=== PATIENT | female | born 1945 | race Caucasian/White ===

== ENCOUNTER 2019-02-13 21:48 | Inpatient (IN) | payer MEDICARE ==
[~2019-02-13] VITALS: Ht 167.6 cm; Wt 170.1 kg
[~2019-02-13 21:48] MED LIST: AMIODARONE HCL 50 MG/ML 3 ML VIAL IV ONE; EPINEPHRINE 0.1 MG/ML 10 ML SYG IVP ONE; ETOMIDATE 2 MG/ML 10 ML VIAL IVP ONE; ROCURONIUM BROMIDE 10MG/1ML 5ML VL IV ONE; SODIUM BICARB 8.4% 50ML SYRINGE IVP ONE; SUCCINYLCHOLINE CHLORIDE 20 MG/ML 10 ML VIAL IVP ONE
[2019-02-13] MEDS ORDERED: LORAZEPAM 2 MG/ML 1 ML VIAL ONE (21:58)
[2019-02-13] MEDS ORDERED: KETAMINE HCL 100 MG/ML 5ML VIAL IJ ONE (22:03)
[2019-02-13 22:29] LABS: BASOPHILS % (AUTO) 0.9 % (0.0-5.0); EOSINOPHILS % (AUTO) 2.5 % (0.0-8.0); HEMATOCRIT 42.1 % (36-48); LYMPHOCYTES % (AUTO) 42.1 % (21.0-51.0); MEAN CORPUSCULAR HEMOGLOBIN 30.1 pg (27.0-33.0); MEAN CORPUSCULAR HGB CONC 32.9 g/dL (32.0-36.0); MEAN CORPUSCULAR VOLUME 91.5 fL (79-99); MONOCYTES % (AUTO) 6.2 % (3.0-13.0); NEUTROPHILS % (AUTO) 48.3 % (40.0-77.0); PLATELET COUNT (AUTO) 259 K/uL (130-400); RED CELL DISTRIBUTION WIDTH 14.5 % (11.0-15.5); WHITE BLOOD COUNT (AUTO) 10.7 K/uL (4.8-10.8)
[2019-02-13] MEDS ORDERED: MIDAZOLAM HCL 5 MG/ML 2ML VIAL IV ONE (22:29)
[2019-02-13] MEDS ORDERED: SODIUM CHLORIDE 0.9% 50 ML IV ONE (22:30)
[2019-02-13] MEDS ORDERED: SODIUM CHLORIDE 0.9% 100 ML IV ONE (22:31)
[2019-02-13 22:39] LABS: CREATININE 1.4 mg/dL (0.5-1.5)
[2019-02-13 22:41] LABS: INR 0.95 (0.85-1.15); PARTIAL THROMBOPLASTIN TIME 24.7 SEC (26.3-35.5)
[2019-02-13 22:50] LABS: ALBUMIN 3.5 g/dL (3.5-5.0); BILIRUBIN,TOTAL 0.5 mg/dL (0.2-1.0); TOTAL PROTEIN, SERUM 7.4 g/dL (6.0-8.3)
[2019-02-13] MEDS ORDERED: IOHEXOL 350 MG/ML 100ML INFUS..BTL IV ONE (23:05)
[2019-02-13] MEDS ORDERED: NITROGLYCERIN 5 MG/ML 10 ML VIAL IV ONE (23:05)
[2019-02-13] MEDS ORDERED: HEPARIN SODIUM 1000UNIT/ML 10ML VIAL ONE (23:05)
[2019-02-13] MEDS ORDERED: BIVALIRUDIN 250 MG/VIAL IV ONE ×2 (23:05→23:30)
[2019-02-13] MEDS ORDERED: IOHEXOL-350 50ML VIAL IV ONE (23:05)
[2019-02-13 23:06] LABS: ABG BASE EXCESS -6.4 mmol/L (-2.0-3.0); ABG HCO3 19.9 mmol/L (21.0-28.0); ABG OXYGEN SATURATION 98.9 % (95.0-99.0); ABG PCO2 42 mmHg (32-45)
[2019-02-13] MEDS ORDERED: LIDOCAINE HCL 2% 20ML ONE (23:06)
[2019-02-13] MEDS ORDERED: DOPAMINE HCL 400 MG/D5%-WATER 250 ML IV ONE (23:35)
[2019-02-13] MEDS ORDERED: EPTIFIBATIDE 2 MG/ML 10 ML VIAL IVP ONE ×2 (23:44→23:45)
[2019-02-13] MEDS ORDERED: EPTIFIBATIDE 75MG/100ML BOTTLE 100 ML IV ONE (23:50)
[2019-02-14] VITALS (62 sets, daily range): BP systolic 69–147; BP diastolic 37–85
[2019-02-14] MEDS ORDERED: EPTIFIBATIDE 2 MG/ML 10 ML VIAL IVP ONE
[2019-02-14] MEDS ORDERED: FENTANYL 2500MCG+NS 250ML 0 ML IV ONE (00:08)
[2019-02-14] MEDS ORDERED: HEPARIN 25000 UNITS/250 ML D5W 250 ML IV ONE (00:50)
[2019-02-14] MEDS ORDERED: HEPARIN SODIUM 1000UNIT/ML 10ML VIAL ONE (00:50)
[2019-02-14] MEDS ORDERED: PHARMACY COMMUNICATION MISC SCH ×2 (01:15→01:30)
[2019-02-14] MEDS ORDERED: PROPOFOL 1000 MG/100 ML IV PRN (01:30)
[2019-02-14] MEDS ORDERED: PRASUGREL HCL 10 MG TABLET ONE (01:54)
[2019-02-14] MEDS ORDERED: PRASUGREL HCL 10 MG TABLET PO ONE (02:00)
[2019-02-14] MEDS ORDERED: PROPOFOL 1000 MG/100 ML 100 ML IV ONE (02:15)
[2019-02-14] MEDS ORDERED: DOPAMINE 800MG/D5 250ML 250 ML IV ONE (04:18)
[2019-02-14 04:37] LABS: MEAN CORPUSCULAR HEMOGLOBIN 29.5 pg (27.0-33.0); MEAN CORPUSCULAR HGB CONC 33.4 g/dL (32.0-36.0); MEAN CORPUSCULAR VOLUME 88.5 fL (79-99); PLATELET COUNT (AUTO) 314 K/uL (130-400); RED BLOOD CELL COUNT(AUTO) 4.63 MIL/uL (4.00-5.50); RED CELL DISTRIBUTION WIDTH 13.9 % (11.0-15.5)
[2019-02-14 04:40] LABS: INR 1.21 (0.85-1.15); PARTIAL THROMBOPLASTIN TIME 59.5 SEC (26.3-35.5); PROTHROMBIN TIME 12.7 SEC (9.6-11.6)
[2019-02-14] MEDS: EPTIFIBATIDE 75MG/100ML BOTTLE 100 ML IV SCH ×5 (05:15→21:25)
[2019-02-14 05:40] LABS: CREATININE 1.7 mg/dL (0.5-1.5); POTASSIUM 3.4 mmol/L (3.5-5.1)
[2019-02-14] MEDS ORDERED: HEPARIN SODIUM 5000UNIT/ML 1ML VIAL SQ PRN (06:00)
[2019-02-14] MEDS ORDERED: DEXTROSE 50%-WATER 50 ML DISP.SYRIN IV PRN (06:00)
[2019-02-14] MEDS: INSULIN HUMULIN R 100 UNIT/ML 3ML SQ SCH ×3 (06:00→18:00)
[2019-02-14] MEDS ORDERED: GLUCAGON 1MG KIT 1 MG ML IM PRN (06:00)
[2019-02-14] MEDS ORDERED: LIDOCAINE HCL-MPF 1% 2ML VIAL IV PRN (06:00)
[2019-02-14] MEDS ORDERED: SODIUM CHLORIDE 0.9% 1000ML 1,000 ML IV SCH (06:00)
[2019-02-14 07:38] LABS: ABG BASE EXCESS -4.2 mmol/L (-2.0-3.0); ABG HCO3 22.2 mmol/L (21.0-28.0); ABG OXYGEN SATURATION 98.8 % (95.0-99.0); ABG PCO2 46 mmHg (32-45)
[2019-02-14] MEDS: SODIUM CHLORIDE 0.9% 1000ML 1,000 ML IV SCH ×2 (08:45→11:53)
[2019-02-14] MEDS: ASPIRIN 81MG TAB.CHEW PO SCH (08:50)
[2019-02-14] MEDS ORDERED: ASPIRIN 81 MG EC TAB PO SCH (09:00)
[2019-02-14 10:35] LABS: INR 1.07 (0.85-1.15); PARTIAL THROMBOPLASTIN TIME 57.3 SEC (26.3-35.5); PROTHROMBIN TIME 11.2 SEC (9.6-11.6)
[2019-02-14 11:30] LABS: TROPONIN I 67.5 ng/mL (0.00-0.06)
[2019-02-14] MEDS ORDERED: FENTANYL 2500MCG+NS 250ML 250 ML IV PRN (11:45)
[2019-02-14] MEDS: NOREPINEPHRINE 4MG/NS 250ML 250 ML IV SCH ×2 (12:27→18:37)
[2019-02-14] MEDS ORDERED: FLUO-126 PO (12:51)
[2019-02-14] MEDS ORDERED: VALS1TAB73 PO (12:51)
[2019-02-14] MEDS ORDERED: LEVO137T2 PO (12:51)
--- NOTE | 2019-02-14 13:12 | NUR ---
DC PLAN VISITED WITH PATIENT. PATIENT S/P CARDIAC ARREST. INTUBATED NO FAMILY AT BEDSIDE. CM WILL CONTINUE TO FOLLOW. ONCE PATIENT IS STABLE WILL DISCUSS DC PLAN. Addendum: 02/14/19 at 1313 by SPRING YANCEY RN CM Amended: Links added.
[2019-02-14] MEDS: MIDAZOLAM 100MG-0.9% NS 100ML 100 ML IV PRN (13:50)
[2019-02-14] MEDS: DOPAMINE 800MG/D5 250ML 250 ML IV PRN (13:52)
--- NOTE | 2019-02-14 13:55 | NUR ---
RD NOTIFICATION Primary Diagnosis: Acute Cardiac Arrest. Hx: HTN, Morbid obese, Elevated Acute NE. BMI is 59.9; classified as Class III morbid obese. Pt is currently NPO. LMB: unknown as per nurse. Skin: edema present. Meds: Diprivan, Humulin R, Effient, Asprin, Lipitor, Heparin, Midazolam, Eptifibatide. Labs: WBC 21, BUN 20, CRE 1.7, GFR 31, BG 172, K 3.4, Cre Kinase 1815, Troponin .30, PH 7.3, PCO2 46, Cl 100. Pt is currently intubated. RD recommends to provide Vital AF 1.2 via NG tube. Start rate at 20mLs for first 5 hrs. Increase rate as tolerated by 5mLs every 5 hours. Goal rate is 65mLs/hr. Propofol 1.1 at 10mLs/hr. Formula Provides: 1872kcal/d, 117grams protein/d, 1265 free water. Flush with 185mLs every 4 hours + 200mLs with meds. Providing 2200mLs total H2O/d. RD left TF order in pts binder and notified RN. RD will continue to monitor and follow up as needed. Please notify RD if any other nutritional concerns arise. Thank you. Addendum: 02/14/19 at [address] Amended: Links added.
--- NOTE | 2019-02-14 14:20 | NUR ---
DR Molina ADLER PAGED TO CLARIFY INTEGRILLIN ORDER, STATES TO INFUSE FOR 24HRS. DISCUSSED PATIENT'S VS, NO URINE OUTPUT, AND DRIPS. NEW ORDERS FOR LASIX AND TO WEAN 1 VASOPRESSOR. WILL CONTINUE TO MONITOR.
--- NOTE | 2019-02-14 16:30 | NUR ---
UPDATED DR Molina ADLER THAT PATIENT DROPPED HR AND BP WHEN DECREASING DOPAMINE. ORDERED TO STOP HEPARIN NOW, IABP 1:3 AND PLAN IABP DC AT 1830. FAMILY UPDATED.
[2019-02-14] MEDS ORDERED: POTASSIUM CHLORIDE 20 MEQ ERTAB PO PRN (16:45)
[2019-02-14] MEDS ORDERED: FUROSEMIDE 10 MG/ML 2ML VIAL ONE (17:10)
[2019-02-14 18:24] LABS: APPEARANCE,URINE Cloudy (CLEAR); BILIRUBIN,URINE Negative (NEGATIVE); COLOR,URINE Yellow (YELLOW); GLUCOSE, URINE (UA) Negative (NEGATIVE); KETONES,URINE Negative (NEGATIVE); LEUKOCYTE ESTERASE ,URINE Moderate (NEGATIVE); NITRATE,URINE Negative (NEGATIVE); OCCULT BLOOD,URINE Large (NEGATIVE); PROTEIN,URINE Trace mg/dL (NEGATIVE); UROBILINOGEN,URINE 0.2 mg/dL (0.2-1.0)
[2019-02-14 18:31] LABS: AMPHET/METH SCREEN,URINE NEGATIVE (NEGATIVE); BARBITURATE SCREEN, URINE NEGATIVE (NEGATIVE); BENZODIAZEPINES SCREEN,URINE POSITIVE (NEGATIVE); CANNABINOID SCREEN,URINE NEGATIVE (NEGATIVE); COCAINE SCREEN,URINE NEGATIVE (NEGATIVE); OPIATE SCREEN,URINE NEGATIVE (NEGATIVE); PHENCYCLIDINE SCREEN,URINE NEGATIVE (NEGATIVE); RBC,URINE 26-50 /HPF (0-1)
[2019-02-14 18:32] LABS: BACTERIA,URINE Few /HPF (None Seen); SQUAMOUS EPITHELIAL CELL,UR Rare /HPF (0-2); TRANSITIONAL EPI CELLS,URINE Few /HPF (None Seen)
[2019-02-14 18:34] LABS: OTHER CASTS, URINE MIXED CELL CASTS 1+ /LPF (None Seen)
[2019-02-14] MEDS ORDERED: FUROSEMIDE 10 MG/ML 2ML VIAL IV ONE (18:56)
--- NOTE | 2019-02-14 20:00 | NUR ---
ASSESSMENT PT RESTING QUIETLY IN BED, INTUBATED AND SEDATED. ETT 7.5, 23 AT THE LIP, AC-14-40%-550+5. IVF FLUIDS INFUSING WITHOUT DIFFICULTY. IABP REMOVES WITH AND PREVIOUS SHIFT. 18FR GÓMEZ CATH TO BEDSIDE DRAINAGE. CALLBELL REVIEWED AND WITHIN REACH. BEDSIDE MONITOR REVIEWED AND PARAMETERS ESTABLISHED. WHITE BOARD UP-DATED. ASSESSMENT COMPLETED, SEE FLOW SHEETS.
[2019-02-14] MEDS: FAMOTIDINE/PF 20 MG/2 ML VIAL IV SCH (21:26)
[2019-02-14] MEDS: PRASUGREL HCL 10 MG TABLET PO SCH (21:26)
[2019-02-14] MEDS: ATORVASTATIN CALCIUM 40 MG TABLET PO SCH (21:26)
[2019-02-15] VITALS (35 sets, daily range): BP systolic 79–133; BP diastolic 35–90
[2019-02-15] MEDS ORDERED: MIDAZOLAM HCL 5 MG/ML 2ML VIAL IV ONE (00:49)
[2019-02-15] MEDS: NOREPINEPHRINE 4MG/NS 250ML 250 ML IV SCH ×2 (01:27→17:09)
--- NOTE | 2019-02-15 03:00 | NUR ---
ASSESSMENT PT RESTING QUIETLY IN BED, INTUBATED AND SEDATED. ETT 7.5, 23 AT THE LIP, AC-14-40%-550+5. IVF FLUIDS INFUSING WITHOUT DIFFICULTY. 18FR GÓMEZ CATH TO BEDSIDE DRAINAGE. CALLBELL WITHIN REACH. ASSESSMENT COMPLETED, SEE FLOW SHEETS.
[2019-02-15 04:14] LABS: ABG BASE EXCESS -5.4 mmol/L (-2.0-3.0); ABG HCO3 19.9 mmol/L (21.0-28.0); ABG PCO2 38 mmHg (32-45)
[2019-02-15 05:32] LABS: CREATININE 1.7 mg/dL (0.5-1.5); MAGNESIUM 1.6 mg/dL (1.80-2.40); POTASSIUM 3.8 mmol/L (3.5-5.1)
[2019-02-15 05:54] LABS: BASOPHILS % (AUTO) 0.2 % (0.0-5.0); HEMATOCRIT 35.9 % (36-48); LYMPHOCYTES % (AUTO) 5.2 % (21.0-51.0); MEAN CORPUSCULAR HEMOGLOBIN 29.5 pg (27.0-33.0); MEAN CORPUSCULAR HGB CONC 33.1 g/dL (32.0-36.0); MEAN CORPUSCULAR VOLUME 89.1 fL (79-99); MONOCYTES % (AUTO) 8.3 % (3.0-13.0); NEUTROPHILS % (AUTO) 86.3 % (40.0-77.0); PLATELET COUNT (AUTO) 254 K/uL (130-400); RED BLOOD CELL COUNT(AUTO) 4.03 MIL/uL (4.00-5.50); WHITE BLOOD COUNT (AUTO) 14.8 K/uL (4.8-10.8)
[2019-02-15] MEDS: INSULIN HUMULIN R 100 UNIT/ML 3ML SQ SCH ×4 (06:00→18:00)
[2019-02-15] MEDS: POTASSIUM CHLORIDE 20MEQ/100ML 100 ML IV PRN (08:31)
[2019-02-15] MEDS: MAGNESIUM 2GM PREMIX 50ML 50 ML IV PRN (08:31)
[2019-02-15] MEDS: ASPIRIN 81MG TAB.CHEW PO SCH (08:31)
[2019-02-15 09:12] LABS: TROPONIN I 41.46 ng/mL (0.00-0.06)
[2019-02-15] MEDS: SODIUM CHLORIDE 0.9% 1000ML 1,000 ML IV SCH (11:52)
[2019-02-15] MEDS: DOPAMINE 800MG/D5 250ML 250 ML IV PRN (17:12)
--- NOTE | 2019-02-15 17:18 | NUR ---
cm note met with patients 3 adult children (Lien), they state that pt is normally independent and active at home. she lives alone, uses a walker or cane at times. had a cpap in the past, but no longer has it, didnt qualify anymore. pt drives self, and does own personal care and adls. pt has a sister in law osmin zavala that lives here in the area. pt currently intubated, discussed with family the possiblity of need for rehab or ltach when pt more stable and closer to dc. family open to any md recommendations.
[2019-02-15] MEDS: FAMOTIDINE/PF 20 MG/2 ML VIAL IV SCH (21:15)
[2019-02-15] MEDS: PRASUGREL HCL 10 MG TABLET PO SCH (21:15)
[2019-02-15] MEDS: ATORVASTATIN CALCIUM 40 MG TABLET PO SCH (21:15)
[2019-02-15] MEDS: ENOXAPARIN SODIUM 30 MG/0.3 ML SQ SCH (21:18)
[2019-02-16] VITALS (41 sets, daily range): BP systolic 80–133; BP diastolic 39–81
[2019-02-16] MEDS: SODIUM CHLORIDE 0.9% 1000ML 1,000 ML IV SCH ×2 (00:45→08:04)
[2019-02-16 04:11] LABS: ABG BASE EXCESS -3.3 mmol/L (-2.0-3.0); ABG HCO3 21.3 mmol/L (21.0-28.0); ABG OXYGEN SATURATION 96.3 % (95.0-99.0); ABG PCO2 37 mmHg (32-45)
[2019-02-16] MEDS: NOREPINEPHRINE 4MG/NS 250ML 250 ML IV SCH (04:46)
[2019-02-16] MEDS: INSULIN HUMULIN R 100 UNIT/ML 3ML SQ SCH ×5 (05:31→23:42)
[2019-02-16 05:46] LABS: MEAN CORPUSCULAR HEMOGLOBIN 29.2 pg (27.0-33.0); MEAN CORPUSCULAR VOLUME 88.2 fL (79-99); PLATELET COUNT (AUTO) 223 K/uL (130-400); RED BLOOD CELL COUNT(AUTO) 3.28 MIL/uL (4.00-5.50); RED CELL DISTRIBUTION WIDTH 14.7 % (11.0-15.5); WHITE BLOOD COUNT (AUTO) 12.7 K/uL (4.8-10.8)
[2019-02-16 06:08] LABS: CREATININE 1.9 mg/dL (0.5-1.5); MAGNESIUM 2.2 mg/dL (1.80-2.40); POTASSIUM 3.6 mmol/L (3.5-5.1)
[2019-02-16 06:13] LABS: TROPONIN I 26.42 ng/mL (0.00-0.06)
[2019-02-16] MEDS: ASPIRIN 81MG TAB.CHEW PO SCH (08:04)
[2019-02-16] MEDS: POTASSIUM CHLORIDE 20MEQ/100ML 100 ML IV PRN (08:04)
[2019-02-16] MEDS: ENOXAPARIN SODIUM 30 MG/0.3 ML SQ SCH ×2 (08:05→21:58)
[2019-02-16] MEDS ORDERED: LORAZEPAM 2 MG/ML 1 ML VIAL IVP PRN (12:30)
[2019-02-16] MEDS ORDERED: FENTANYL CITRATE PF 50 MCG/1 ML 2ML VIAL IVP PRN (12:30)
[2019-02-16] MEDS ORDERED: ONDANSETRON HCL 4 MG/2 ML VIAL IVP PRN (12:30)
[2019-02-16] MEDS: ATORVASTATIN CALCIUM 40 MG TABLET PO SCH (21:58)
[2019-02-16] MEDS: FAMOTIDINE/PF 20 MG/2 ML VIAL IV SCH (21:58)
[2019-02-16] MEDS: PRASUGREL HCL 10 MG TABLET PO SCH (21:58)
[2019-02-17] VITALS (24 sets, daily range): BP systolic 101–145; BP diastolic 51–82
[2019-02-17] MEDS: SODIUM CHLORIDE 0.9% 1000ML 1,000 ML IV SCH (02:55)
--- NOTE | 2019-02-17 04:00 | NUR ---
Complete bath done. PICC line dressing changed. Status unchanged
[2019-02-17 04:54] LABS: BASOPHILS % (AUTO) 0.3 % (0.0-5.0); EOSINOPHILS % (AUTO) 0.9 % (0.0-8.0); HEMATOCRIT 24.4 % (36-48); LYMPHOCYTES % (AUTO) 8.2 % (21.0-51.0); MEAN CORPUSCULAR HEMOGLOBIN 30.3 pg (27.0-33.0); MEAN CORPUSCULAR HGB CONC 33.8 g/dL (32.0-36.0); MEAN CORPUSCULAR VOLUME 89.4 fL (79-99); MONOCYTES % (AUTO) 8.3 % (3.0-13.0); NEUTROPHILS % (AUTO) 82.3 % (40.0-77.0); PLATELET COUNT (AUTO) 167 K/uL (130-400); RED BLOOD CELL COUNT(AUTO) 2.73 MIL/uL (4.00-5.50); RED CELL DISTRIBUTION WIDTH 14.2 % (11.0-15.5); WHITE BLOOD COUNT (AUTO) 9.1 K/uL (4.8-10.8)
[2019-02-17 05:06] LABS: CREATININE 2.1 mg/dL (0.5-1.5); MAGNESIUM 2.3 mg/dL (1.80-2.40); POTASSIUM 3.8 mmol/L (3.5-5.1)
[2019-02-17 05:08] LABS: B-TYPE NATRIURETIC PEPTIDE 245 pg/mL (0-100)
[2019-02-17] MEDS: INSULIN HUMULIN R 100 UNIT/ML 3ML SQ SCH ×3 (06:00→17:32)
[2019-02-17] MEDS: ASPIRIN 81MG TAB.CHEW PO SCH (08:11)
[2019-02-17] MEDS: POTASSIUM CHLORIDE 20MEQ/100ML 100 ML IV PRN (08:11)
[2019-02-17] MEDS: ENOXAPARIN SODIUM 30 MG/0.3 ML SQ SCH ×2 (08:11→20:57)
[2019-02-17] MEDS ORDERED: LACTATED RINGERS 1000ML IV SCH (12:15)
[2019-02-17] MEDS: ATORVASTATIN CALCIUM 40 MG TABLET PO SCH (20:56)
[2019-02-17] MEDS: PRASUGREL HCL 10 MG TABLET PO SCH (20:56)
[2019-02-17] MEDS: FAMOTIDINE/PF 20 MG/2 ML VIAL IV SCH (20:56)
[2019-02-18] VITALS (21 sets, daily range): BP systolic 115–152; BP diastolic 57–81
[2019-02-18 04:22] LABS: ABG BASE EXCESS -2.6 mmol/L (-2.0-3.0); ABG HCO3 21.4 mmol/L (21.0-28.0); ABG OXYGEN SATURATION 97.7 % (95.0-99.0); ABG PCO2 35 mmHg (32-45)
[2019-02-18] MEDS: SODIUM CHLORIDE 0.9% 1000ML 1,000 ML IV SCH (04:42)
[2019-02-18 05:28] LABS: BASOPHILS % (AUTO) 0.5 % (0.0-5.0); EOSINOPHILS % (AUTO) 2.6 % (0.0-8.0); HEMATOCRIT 23.6 % (36-48); MEAN CORPUSCULAR HEMOGLOBIN 29.8 pg (27.0-33.0); MEAN CORPUSCULAR HGB CONC 33.5 g/dL (32.0-36.0); MONOCYTES % (AUTO) 9.2 % (3.0-13.0); NEUTROPHILS % (AUTO) 78.7 % (40.0-77.0); PLATELET COUNT (AUTO) 176 K/uL (130-400); RED BLOOD CELL COUNT(AUTO) 2.65 MIL/uL (4.00-5.50); RED CELL DISTRIBUTION WIDTH 14.6 % (11.0-15.5); WHITE BLOOD COUNT (AUTO) 8.4 K/uL (4.8-10.8)
[2019-02-18] MEDS: INSULIN HUMULIN R 100 UNIT/ML 3ML SQ SCH ×4 (05:28→18:00)
[2019-02-18 05:35] LABS: CREATININE 1.2 mg/dL (0.5-1.5); MAGNESIUM 2.3 mg/dL (1.80-2.40); POTASSIUM 4.1 mmol/L (3.5-5.1)
[2019-02-18 07:17] LABS: T4 (THYROXINE) 6.1 ug/dL (4.7-13.3); THYROID STIMULATING HORMONE 1.71 uIU/mL (0.36-3.74)
[2019-02-18] MEDS ORDERED: LEVOTHYROXINE 25 MCG TABLET PO SCH (09:00)
[2019-02-18] MEDS: ASPIRIN 81MG TAB.CHEW PO SCH (09:02)
[2019-02-18] MEDS: ENOXAPARIN SODIUM 30 MG/0.3 ML SQ SCH ×2 (09:02→21:21)
--- NOTE | 2019-02-18 09:34 | NUR ---
PT RECEIVED IN BED, NO ACUTE DISTRESS NOTED. CONT ON AC 14/550/+5/40% WITH 7.5 ETT 23 @ THE TEETH. PT SPONTANEOUSLY OPENING EYES, MOVES ALL EXTREMITIES ON COMMAND AND ANSWERS SIMPLE QUESTIONS WITH NODDING YES/NO. PT PLACED ON CPAP TRIAL AT 0900 WITH PLANS FOR ABG IN 1 HR IF TOLERATES. FAMILY IS AT BEDSIDE AND POC DISCUSSED WITH THEM. POC INCLUDES MRI WO CONTRAST AND NEUROLOGY CONSULT. WILL CONT TO MONITOR CLOSELY. ASSESSMENT DOCUMENTED. @ [address] ROSA ADLER, UPDATED ON STATUS.
--- NOTE | 2019-02-18 10:50 | NUR ---
PT TRANSFERRED TO BARIATRIC BED.
--- NOTE | 2019-02-18 11:05 | NUR ---
MD ROUNDS DR. DINH IN TO SEE PATIENT. MD EVALUATED PATIENT. PT FOLLOWED COMMANDS WELL. PER DR. DINH, NO NEED FOR EEG AND HE DOES NOT REQUIRE MRI, BEING BRAIN STEM IS INTACT. I NOTIFIED MARTHA RAMIREZ WITH DR. SY. CASTRO TO DISCONTINUE EEG AND MRI.
[2019-02-18 11:13] LABS: ABG BASE EXCESS -2.8 mmol/L (-2.0-3.0); ABG HCO3 21.9 mmol/L (21.0-28.0); ABG OXYGEN SATURATION 97.9 % (95.0-99.0); ABG PCO2 38 mmHg (32-45)
--- NOTE | 2019-02-18 11:45 | NUR ---
Leak test performed. No audible leak heard. Dr Treviño at bedside.
[2019-02-18] MEDS: DEXAMETHASONE SOD PHOSPHATE 4 MG/ML 1ML VIAL IVP SCH ×2 (12:14→18:17)
--- NOTE | 2019-02-18 12:17 | NUR ---
MD ROUNDS DR. LENTZ IN TO SEE AND EVALUATE PATIENT. LEAK TEST PERFORMED. PT NOT READY FOR EXTUBATION, MD SPOKE WITH FAMILY AND POC DISCUSSED. WILL CONT TO MONITOR CLOSELY.
--- NOTE | 2019-02-18 16:17 | NUR ---
RD Follow Up Note Pt tolerating current tube feeding as per RN. Rec to continue at this time. Pending weaning from extubation as per RN. Pt LBM 02/16/19. Pt monitored labs: BUN 41, GFR 47, Glu 107, Ca 8.3, T3 0.93. RD to continue to monitor. Please notify RD as nutritional concerns arise. Thank you. Addendum: 02/18/19 at [address] Amended: Links added.
--- NOTE | 2019-02-18 17:38 | NUR ---
MD ROUNDS DR. NATH IN TO SEE PATIENT. MD UPDATED ON STATUS. NEW ORDERS RECEIVED TO BE CARRIED OUT.
--- NOTE | 2019-02-18 19:30 | NUR ---
ASSESSMENT PT RESTING QUIETLY IN BED, INTUBATED, ETT 7.5, 23 AT THE LIP, AC-14-40%-550+5. PT AROUSES WITH VERBAL STIMULI, FOLLOWS COMMANDS, PERRLA. IVF FLUIDS INFUSING WITHOUT DIFFICULTY. GENERALIZED BRUISING NOTED. 18FR GÓMEZ CATH TO BEDSIDE DRAINAGE. CALLBELL WITHIN REACH. WHITE BOARD UP-DATED. ASSESSMENT COMPLETED, SEE FLOW SHEETS.
--- NOTE | 2019-02-18 19:30 | NUR ---
ASSESSMENT PT RESTING QUIETLY IN BED, INTUBATED, ETT 7.5, 23 AT THE LIP, AC-14-40%-550+5. PT AROUSES WITH VERBAL STIMULI, FOLLOWS COMMANDS, PERRLA. IVF FLUIDS INFUSING WITHOUT DIFFICULTY. GENERALIZED BRUISING NOTED. 18FR GÓMEZ CATH TO BEDSIDE DRAINAGE. CALLBELL REVIEWED AND WITHIN REACH. BEDSIDE MONITOR REVIEWED AND PARAMETERS ESTABLISHED. WHITE BOARD UP-DATED. ASSESSMENT COMPLETED, SEE FLOW SHEETS.
[2019-02-18] MEDS: PRASUGREL HCL 10 MG TABLET PO SCH (21:29)
[2019-02-18] MEDS: FAMOTIDINE/PF 20 MG/2 ML VIAL IV SCH (21:29)
[2019-02-18] MEDS: ATORVASTATIN CALCIUM 40 MG TABLET PO SCH (21:29)
[2019-02-18] MEDS: LISINOPRIL 2.5 MG TABLET PO SCH (21:30)
[2019-02-19] VITALS (24 sets, daily range): BP systolic 108–202; BP diastolic 49–107
[2019-02-19] MEDS: SODIUM CHLORIDE 0.9% 1000ML 1,000 ML IV SCH (00:09)
[2019-02-19] MEDS: DEXAMETHASONE SOD PHOSPHATE 4 MG/ML 1ML VIAL IVP SCH ×3 (00:09→12:30)
--- NOTE | 2019-02-19 03:00 | NUR ---
ASSESSMENT PT RESTING QUIETLY IN BED, INTUBATED, ETT 7.5, 23 AT THE LIP, AC-14-40%-550+5. PT AROUSES WITH VERBAL STIMULI, FOLLOWS COMMANDS, PERRLA. IVF FLUIDS INFUSING WITHOUT DIFFICULTY. GENERALIZED BRUISING NOTED. 18FR GÓMEZ CATH TO BEDSIDE DRAINAGE. CALLBELL WITHIN REACH. ASSESSMENT COMPLETED, SEE FLOW SHEETS.
[2019-02-19 03:32] LABS: HEMATOCRIT 25.4 % (36-48); MEAN CORPUSCULAR HEMOGLOBIN 30.2 pg (27.0-33.0); MEAN CORPUSCULAR HGB CONC 33.9 g/dL (32.0-36.0); MEAN CORPUSCULAR VOLUME 89.3 fL (79-99); NUCLEATED RED BLOOD CELLS 0.1 % (0.0-0.19); PLATELET COUNT (AUTO) 185 K/uL (130-400); RED BLOOD CELL COUNT(AUTO) 2.84 MIL/uL (4.00-5.50); RED CELL DISTRIBUTION WIDTH 14.4 % (11.0-15.5); WHITE BLOOD COUNT (AUTO) 10.5 K/uL (4.8-10.8)
[2019-02-19 03:37] LABS: MAGNESIUM 2.2 mg/dL (1.80-2.40); POTASSIUM 4.2 mmol/L (3.5-5.1)
[2019-02-19] MEDS: INSULIN HUMULIN R 100 UNIT/ML 3ML SQ SCH ×3 (06:00→11:53)
[2019-02-19] MEDS: LEVOTHYROXINE 112 MCG TABLET PO SCH (06:09)
[2019-02-19] MEDS: LEVOTHYROXINE 25 MCG TABLET PO SCH (06:10)
[2019-02-19] MEDS: ENOXAPARIN SODIUM 30 MG/0.3 ML SQ SCH ×2 (08:37→20:56)
[2019-02-19] MEDS: LISINOPRIL 2.5 MG TABLET PO SCH ×2 (08:37→20:50)
[2019-02-19] MEDS: ASPIRIN 81MG TAB.CHEW PO SCH (08:38)
[2019-02-19] MEDS ORDERED: LEVOTHYROXINE 112 MCG TABLET PO SCH (09:00)
[2019-02-19] MEDS: MIDAZOLAM 100MG-0.9% NS 100ML 100 ML IV PRN (09:09)
--- NOTE | 2019-02-19 09:48 | NUR ---
CPAP TRIALS FAILED AM CPAP TRIAL. PT BECAME TACHYPNEIC 30s-40s, BLOOD PRESSURE 200 SYSTOLIC. TOLERATED ABOUT 10-15 MINUTES. FAMILY WAS AT BEDSIDE. PT GIVEN VERSED PER PROTOCOL FOR ABOUT 30 MINUTES AND TURNED OFF. PT IS ALERT AND RESPONDS APPROPRIATELY. AT THIS TIME PT IS CALM, SBP 130s AND HR 57. I SPOKE WITH FAMILY ADVISED ON LIMITING VISITATION ADN THEY AGREED. PT NEEDS TO CONSERVE HER ENERGY. PT PLACED BACK ON AC 14-550- +5-60% FIO2. FIO2 WAS INCREASED D/T SATURATIONS DECREASED TO 94%. WILL CONT TO MONITOR CLOSELY.
[2019-02-19] MEDS: HYDROCHLOROTHIAZIDE 25 MG TABLET PO SCH (10:58)
--- NOTE | 2019-02-19 11:27 | NUR ---
SPOKE WITH YURI Del Castillo WITH [facility], INFORMED PT'S HEART RATE HAS BEEN TRENDING TO THE 40s, NOT SUSTAINING. INSTRUCTED TO KEEP MONITORING AND NOTIFY IF PT DETERIORATES OR HAS A CHANGE IN STATUS. WILL CONT TO MONITOR CLOSELY.
[2019-02-19 12:32] LABS: ABG HCO3 20.8 mmol/L (21.0-28.0); ABG OXYGEN SATURATION 98.5 % (95.0-99.0); ABG PCO2 34 mmHg (32-45)
--- NOTE | 2019-02-19 12:41 | NUR ---
ABG RESULTS CALLED TO FLORA CHEUNG BATH STEWARD/STEWARDESS. ORDERS TO ADMINISTER NEB TREATMENT AND EXTUBATE PATIENT.
[2019-02-19] MEDS: IPRATROPIUM/ALBUTEROL SULFATE 3 ML SOLUTION IH SCH ×3 (12:45→23:53)
--- NOTE | 2019-02-19 13:16 | NUR ---
PT HAS BEEN EXTUBATED AT 1304, NO COMPLICATIONS NOTED. PT PLACED ON 40% AEROSOL MASK WITH SATURATIONS 100%. WILL CONT TO MONITOR CLOSELY.
--- NOTE | 2019-02-19 14:53 | NUR ---
PT IN BED, AWAKE, WATCHING TV, NO ACUTE DISTRESS NOTED. CONT ON AEROSOL MASK 40% WITH 100 % SATURATIONS. WILL CONT TO MONITOR CLOSELY.
--- NOTE | 2019-02-19 16:41 | NUR ---
RECEIVED CALL FROM DR. EZE MD UPDATED ON STATUS. INFORMED PT HAS BEEN EXTUBATED AND IS HEMODYNAMICALLY STABLE.
[2019-02-19] MEDS ORDERED: ARTIFICAL TEARS SOL 15 ML OU PRN (17:00)
[2019-02-19] MEDS: ATORVASTATIN CALCIUM 40 MG TABLET PO SCH (20:50)
[2019-02-19] MEDS: PRASUGREL HCL 10 MG TABLET PO SCH (20:50)
[2019-02-19] MEDS: FAMOTIDINE/PF 20 MG/2 ML VIAL IV SCH (20:54)
[2019-02-20] VITALS (21 sets, daily range): BP systolic 106–147; BP diastolic 45–104
[2019-02-20 03:55] LABS: HEMATOCRIT 24.3 % (36-48); MEAN CORPUSCULAR HEMOGLOBIN 30.1 pg (27.0-33.0); MEAN CORPUSCULAR HGB CONC 34.1 g/dL (32.0-36.0); MEAN CORPUSCULAR VOLUME 88.4 fL (79-99); PLATELET COUNT (AUTO) 206 K/uL (130-400); RED BLOOD CELL COUNT(AUTO) 2.75 MIL/uL (4.00-5.50); RED CELL DISTRIBUTION WIDTH 14.7 % (11.0-15.5)
[2019-02-20 04:03] LABS: POTASSIUM 3.7 mmol/L (3.5-5.1)
[2019-02-20] MEDS: POTASSIUM CHLORIDE 20MEQ/100ML 100 ML IV PRN (04:46)
[2019-02-20] MEDS: LEVOTHYROXINE 112 MCG TABLET PO SCH (06:04)
[2019-02-20] MEDS: LEVOTHYROXINE 25 MCG TABLET PO SCH (06:05)
[2019-02-20] MEDS: IPRATROPIUM/ALBUTEROL SULFATE 3 ML SOLUTION IH SCH ×2 (06:21→11:35)
[2019-02-20] MEDS: ASPIRIN 81MG TAB.CHEW PO SCH (08:25)
[2019-02-20] MEDS: HYDROCHLOROTHIAZIDE 25 MG TABLET PO SCH (08:25)
[2019-02-20] MEDS: LISINOPRIL 2.5 MG TABLET PO SCH ×2 (08:25→21:00)
[2019-02-20] MEDS: ENOXAPARIN SODIUM 30 MG/0.3 ML SQ SCH ×2 (08:26→21:01)
--- NOTE | 2019-02-20 10:00 | NUR ---
DYSPHAGIA EVAL COMPLETED. +S/S OF ASPIRATION WITH ALL TRIALS. RECOMMEND NPO UNTIL MBSS. Addendum: 02/20/19 at 1219 by LIZZETH URBINA, [facility] Amended: Links added.
--- NOTE | 2019-02-20 15:10 | NUR ---
RD Follow Up Pt s/p extubation, diet held pending Barium-Swallow study as per RN. Pt LBM 02/16/19; Rec to add stool softener/laxative for constipation. Pt monitored labs: BUN 31, GFR 58, T3 0.93. Noted wounds: R. Femoral Puncture, Anterior general bruise. RD to follow up. Please notify RD as additional nutrition concerns arise. Thank you. Addendum: 02/20/19 at [address] Amended: Links added.
[2019-02-20] MEDS: PRASUGREL HCL 10 MG TABLET PO SCH (21:00)
[2019-02-20] MEDS: ATORVASTATIN CALCIUM 40 MG TABLET PO SCH (21:00)
[2019-02-20] MEDS: METOPROLOL TARTRATE 25 MG TAB PO SCH (21:00)
[2019-02-20] MEDS: FAMOTIDINE/PF 20 MG/2 ML VIAL IV SCH (21:00)
[2019-02-20] MEDS: SODIUM CHLORIDE 0.9% 1000ML 1,000 ML IV SCH (21:08)
[2019-02-21] VITALS (21 sets, daily range): BP systolic 140–170; BP diastolic 63–105
[2019-02-21 03:51] LABS: BASOPHILS % (AUTO) 0.5 % (0.0-5.0); EOSINOPHILS % (AUTO) 3.6 % (0.0-8.0); HEMATOCRIT 26.7 % (36-48); LYMPHOCYTES % (AUTO) 7.6 % (21.0-51.0); MEAN CORPUSCULAR HEMOGLOBIN 30.1 pg (27.0-33.0); MEAN CORPUSCULAR VOLUME 88.4 fL (79-99); MONOCYTES % (AUTO) 12.8 % (3.0-13.0); NEUTROPHILS % (AUTO) 75.5 % (40.0-77.0); PLATELET COUNT (AUTO) 255 K/uL (130-400); RED BLOOD CELL COUNT(AUTO) 3.02 MIL/uL (4.00-5.50); RED CELL DISTRIBUTION WIDTH 14.5 % (11.0-15.5); WHITE BLOOD COUNT (AUTO) 9.3 K/uL (4.8-10.8)
[2019-02-21 04:11] LABS: ALBUMIN 2.5 g/dL (3.5-5.0); BILIRUBIN,TOTAL 1.7 mg/dL (0.2-1.0); MAGNESIUM 1.9 mg/dL (1.80-2.40); PHOSPHORUS 3.3 mg/dL (2.5-4.9); TOTAL PROTEIN, SERUM 6.7 g/dL (6.0-8.3)
[2019-02-21] MEDS: LEVOTHYROXINE 112 MCG TABLET PO SCH (05:38)
[2019-02-21] MEDS: LEVOTHYROXINE 25 MCG TABLET PO SCH (05:38)
[2019-02-21] MEDS: MAGNESIUM 2GM PREMIX 50ML 50 ML IV PRN (05:53)
--- NOTE | 2019-02-21 08:20 | NUR ---
DR HALEY AT BEDSIDE PERFORMING LARYNGOSCOPY, TOLERATE PROCEDURE WELL.
[2019-02-21] MEDS: ASPIRIN 81MG TAB.CHEW PO SCH (09:00)
[2019-02-21] MEDS: LISINOPRIL 5 MG TABLET PO SCH ×2 (09:00→20:33)
[2019-02-21] MEDS: METOPROLOL TARTRATE 25 MG TAB PO SCH ×2 (09:00→20:33)
[2019-02-21] MEDS: ENOXAPARIN SODIUM 30 MG/0.3 ML SQ SCH ×2 (09:17→21:15)
[2019-02-21] MEDS: PANTOPRAZOLE 40 MG/VIAL IVP SCH ×2 (09:19→21:15)
--- NOTE | 2019-02-21 11:00 | NUR ---
MBSS COMPLETED. Pt WITH ASPIRATION WITH PUREED AND PUDDING. RECOMMEND NPO, SHORT-TERM ALTERNATE MEANS OF NUTRITION/HYDRATION. RECOMMENDATIONS: 1. DYSPHAGIA THERAPY 3-5X WEEK TO INCREASE ORAL MOTOR STRENGTH AND PHARYNGEAL SWALLOW: LTG#1: Pt WILL TOLERATE LEAST RESTRICTIVE DIET TO MEET NUTRITION/HYDRATION WITH NO S/S OF ASPIRATION. LTG#2: SKILLED EDUCATION Pt/FAMILY/STAFF STG#1: Pt WILL PARTICIPATE IN LARYNGEAL ELEVATION/EXCURSION EXERCISES WITH 80% ACCURACY. STG#2: Pt WILL PARTICIPATE IN TONGUE BASE RETRACTION EXERCISES WITH 80% ACCURACY. STG#3: Pt WILL PARTICIPATE IN THERAPEUTIC TRIALS OF REGULAR TEXTURE WITH NO S/S OF ASPIRATION. STG#4: PT WILL BE ABLE TO PARTICIPATE IN MBSS AFTER 2-4 DAYS OF THERAPEUTIC INTERVENTION. STG#5: SKILLED EDUCATION Pt/FAMILY/STAFF. Addendum: 02/22/19 at 1228 by LIZZETH URBINA, [facility] Amended: Links added.
[2019-02-21] MEDS: HYDRALAZINE HCL 20 MG/ML VIAL IV PRN ×2 (15:18→22:38)
[2019-02-21 17:51] LABS: ABG BASE EXCESS -0.7 mmol/L (-2.0-3.0); ABG HCO3 22.9 mmol/L (21.0-28.0); ABG OXYGEN SATURATION 97.2 % (95.0-99.0); ABG PCO2 35 mmHg (32-45)
[2019-02-21] MEDS: IPRATROPIUM 0.5 MG/2.5 ML INH IH SCH ×2 (18:09→23:15)
[2019-02-21] MEDS: PRASUGREL HCL 10 MG TABLET PO SCH (20:33)
[2019-02-21] MEDS: ATORVASTATIN CALCIUM 40 MG TABLET PO SCH (20:33)
[2019-02-22] VITALS (9 sets, daily range): BP systolic 142–170; BP diastolic 68–81
[2019-02-22] MEDS: HYDRALAZINE HCL 20 MG/ML VIAL IV PRN (03:13)
[2019-02-22 03:42] LABS: HEMATOCRIT 28.7 % (36-48); MEAN CORPUSCULAR HEMOGLOBIN 30.4 pg (27.0-33.0); MEAN CORPUSCULAR HGB CONC 34.4 g/dL (32.0-36.0); MEAN CORPUSCULAR VOLUME 88.4 fL (79-99); PLATELET COUNT (AUTO) 249 K/uL (130-400); RED BLOOD CELL COUNT(AUTO) 3.24 MIL/uL (4.00-5.50); RED CELL DISTRIBUTION WIDTH 14.3 % (11.0-15.5); WHITE BLOOD COUNT (AUTO) 8.9 K/uL (4.8-10.8)
[2019-02-22 04:27] LABS: ALBUMIN 2.4 g/dL (3.5-5.0); BILIRUBIN,TOTAL 1.9 mg/dL (0.2-1.0); CREATININE 0.9 mg/dL (0.5-1.5); MAGNESIUM 1.9 mg/dL (1.80-2.40); POTASSIUM 3.7 mmol/L (3.5-5.1); TOTAL PROTEIN, SERUM 6.6 g/dL (6.0-8.3)
[2019-02-22] MEDS: IPRATROPIUM 0.5 MG/2.5 ML INH IH SCH ×3 (05:28→18:56)
[2019-02-22] MEDS: POTASSIUM CHLORIDE 20MEQ/100ML 100 ML IV PRN (05:32)
--- NOTE | 2019-02-22 09:00 | NUR ---
TREATMENT COMPLETED. S: Pt SEATED AT 90 DEGREED IN BED HIGHLY MOTIVATED. DAUGHTER PRESENT AT BEDSIDE DURING THE EVALUATION. GREIGE GOODS MARKER EDUCATED Pt AND DAUGHTER ON RISKS AND CONSEQUENCES OF ASPIRATION. THEY VERBALIZED UNDERSTANDING AND COMPLIANCE. DAUGHTER REPORTS MD WITH OK FOR ICE CHIPS. Pt AT HIGH RISK FOR ASPIRATION. O: Pt CURRENTLY TARGETING DYSPHAGIA GOALS. RESULTS ARE FOLLOWS: STG#1: Pt WILL PARTICIPATE IN LARYNGEAL ELEVATION/EXCURSION EXERCISES WITH 80% ACCURACY: 50% ACCURACY STG#2: Pt WILL PARTICIPATE IN TONGUE BASE RETRACTION EXERCISES WITH 80% ACCURACY: 40% ACCURACY STG#3: Pt WILL PARTICIPATE IN THERAPEUTIC TRIALS OF REGULAR TEXTURE WITH NO S/S OF ASPIRATION: NT STG#5: PT WILL BE ABLE TO PARTICIPATE IN MBSS AFTER 2-4 DAYS OF THERAPEUTIC INTERVENTION. STG#6: SKILLED EDUCATION Pt/FAMILY/STAFF: COMPLETED WITH SON AND DAUGHTER. A: PT WITH BURSTS OF PHONATION DURING SESSION. Pt WITH DECREASED ACTIVITY TOLERANCE. P: RECOMMEND CONTINUED SKILLED SPEECH THERAPY TARGETING SWALLOWING. HOMEWORK FOR CONTINUED EXERCISES PROVIDED TO DAUGHTER AND SON. ALL QUESTIONS ANSWERED AT THIS TIME. GREIGE GOODS MARKER COORDINATED CARE WITH NURSE YUEN. NPO CONTINUES TO BE RECOMMENDED. Addendum: 02/22/19 at 1241 by LIZZETH URBINA [facility] Amended: Links added.
[2019-02-22] MEDS: SODIUM CHLORIDE 0.9% 1000ML 1,000 ML IV SCH ×2 (09:57→22:53)
[2019-02-22] MEDS: PANTOPRAZOLE 40 MG/VIAL IVP SCH ×2 (09:57→23:59)
[2019-02-22] MEDS: ENOXAPARIN SODIUM 30 MG/0.3 ML SQ SCH ×2 (09:59→22:21)
[2019-02-22] MEDS ORDERED: LIDOCAINE HCL 2% VISCOUS 15 ML UDCUP ONE (10:45)
[2019-02-22] MEDS: LEVOTHYROXINE 25 MCG TABLET PO SCH (13:10)
[2019-02-22] MEDS: ASPIRIN 81MG TAB.CHEW PO SCH (13:10)
[2019-02-22] MEDS: LISINOPRIL 5 MG TABLET PO SCH ×2 (13:10→22:16)
[2019-02-22] MEDS: METOPROLOL TARTRATE 25 MG TAB PO SCH ×2 (13:11→22:17)
[2019-02-22] MEDS: LEVOTHYROXINE 112 MCG TABLET PO SCH (13:11)
[2019-02-22] MEDS ORDERED: RACEPINEPHRINE HCL 2.25% 0.5 ML NEB SOLN NEB PRN (14:45)
--- NOTE | 2019-02-22 20:00 | NUR ---
PM NOTE PATIENT RESTING IN BED, ALERT AND ORIENTED X3. PATIENT DENIES PAIN, GÓMEZ IN PLACE. PATIENT GIVEN A BED BATH. DUBHOFF TUBE IN PLACE, VITAL AF RUNNING AT 40ML/HR. FAMILY AT BEDSIDE. NO S/S OF DISTRESS AT THIS TIME. WILL CONTINUE MONITORING. CALL LIGHT WITHIN REACH.
[2019-02-22] MEDS: PRASUGREL HCL 10 MG TABLET PO SCH (22:16)
[2019-02-22] MEDS: ATORVASTATIN CALCIUM 40 MG TABLET PO SCH (22:16)
[2019-02-23] MEDS: IPRATROPIUM 0.5 MG/2.5 ML INH IH SCH ×5 (00:16→23:28)
[2019-02-23] MEDS: SODIUM CHLORIDE 0.9% 1000ML 1,000 ML IV SCH ×2 (02:30→10:27)
[2019-02-23 03:52] LABS: HEMATOCRIT 28.8 % (36-48); MEAN CORPUSCULAR HGB CONC 33.8 g/dL (32.0-36.0); MEAN CORPUSCULAR VOLUME 88.7 fL (79-99); PLATELET COUNT (AUTO) 277 K/uL (130-400); RED BLOOD CELL COUNT(AUTO) 3.25 MIL/uL (4.00-5.50); RED CELL DISTRIBUTION WIDTH 14.7 % (11.0-15.5); WHITE BLOOD COUNT (AUTO) 11.1 K/uL (4.8-10.8)
[2019-02-23 04:08] LABS: CREATININE 0.7 mg/dL (0.5-1.5); MAGNESIUM 1.8 mg/dL (1.80-2.40); POTASSIUM 3.7 mmol/L (3.5-5.1)
[2019-02-23 04:41] VITALS: BP 166/76
[2019-02-23] MEDS: LEVOTHYROXINE 25 MCG TABLET PO SCH (06:04)
[2019-02-23] MEDS: LEVOTHYROXINE 112 MCG TABLET PO SCH (06:04)
[2019-02-23] MEDS ORDERED: SODIUM CHLORIDE 0.9% 500ML 250 ML IV SCH (06:30)
[2019-02-23 07:10] VITALS: BP 148/59
[2019-02-23] MEDS: PANTOPRAZOLE 40 MG/VIAL IVP SCH (10:17)
[2019-02-23] MEDS: LISINOPRIL 5 MG TABLET PO SCH ×2 (10:18→21:41)
[2019-02-23] MEDS: METOPROLOL TARTRATE 25 MG TAB PO SCH ×2 (10:18→21:40)
[2019-02-23] MEDS: ASPIRIN 81MG TAB.CHEW PO SCH (10:18)
[2019-02-23] MEDS: ENOXAPARIN SODIUM 30 MG/0.3 ML SQ SCH ×2 (10:26→21:41)
[2019-02-23 11:00] VITALS: BP 141/74
[2019-02-23 15:00] VITALS: BP 129/67
[2019-02-23 19:46] VITALS: BP 145/63
--- NOTE | 2019-02-23 21:00 | NUR ---
PT IN BED, MEDICATIONS ADMINISTERED VIA DOBHOFF. TOLERATED WELL. VITAL AF @65ML/HR CONTINUOUSLY. 185ML/HR Q6HRS. PT STABLE. STATED NO PAIN. HAD HAD INCREASED THROAT IRRITATION AND HOARSENESS. ENT CONSULTED.
[2019-02-23] MEDS: FAMOTIDINE 20MG TAB 20 MG TAB PO SCH (21:40)
[2019-02-23] MEDS: PRASUGREL HCL 10 MG TABLET PO SCH (21:40)
[2019-02-23] MEDS: ATORVASTATIN CALCIUM 40 MG TABLET PO SCH (21:40)
[2019-02-23] MEDS: MAGNESIUM 2GM PREMIX 50ML 50 ML IV PRN (21:43)
[2019-02-24 00:29] VITALS: BP 156/71
[2019-02-24 03:51] LABS: MEAN CORPUSCULAR HEMOGLOBIN 30.2 pg (27.0-33.0); MEAN CORPUSCULAR HGB CONC 34.4 g/dL (32.0-36.0); MEAN CORPUSCULAR VOLUME 87.8 fL (79-99); PLATELET COUNT (AUTO) 289 K/uL (130-400); RED BLOOD CELL COUNT(AUTO) 3.18 MIL/uL (4.00-5.50); RED CELL DISTRIBUTION WIDTH 14.8 % (11.0-15.5); WHITE BLOOD COUNT (AUTO) 10.9 K/uL (4.8-10.8)
[2019-02-24] MEDS ORDERED: SODIUM CHLORIDE 0.9% 1000ML 1,000 ML IV ONE (04:06)
[2019-02-24 04:12] LABS: CREATININE 0.7 mg/dL (0.5-1.5); POTASSIUM 3.4 mmol/L (3.5-5.1)
[2019-02-24 04:27] VITALS: BP 152/58
[2019-02-24] MEDS: IPRATROPIUM 0.5 MG/2.5 ML INH IH SCH ×4 (06:20→23:28)
[2019-02-24] MEDS: LEVOTHYROXINE 25 MCG TABLET PO SCH (06:24)
[2019-02-24] MEDS: LEVOTHYROXINE 112 MCG TABLET PO SCH (06:25)
[2019-02-24] MEDS: POTASSIUM CHLORIDE 10% ELIXIR 20 MEQ/15 ML UDCUP PO PRN (06:30)
[2019-02-24 07:15] VITALS: BP 127/57
[2019-02-24] MEDS: ASPIRIN 81MG TAB.CHEW PO SCH (09:53)
[2019-02-24] MEDS: FAMOTIDINE 20MG TAB 20 MG TAB PO SCH ×2 (09:53→20:07)
[2019-02-24] MEDS: METOPROLOL TARTRATE 25 MG TAB PO SCH ×2 (09:54→20:07)
[2019-02-24] MEDS: LISINOPRIL 5 MG TABLET PO SCH ×2 (09:54→20:07)
[2019-02-24] MEDS: ENOXAPARIN SODIUM 30 MG/0.3 ML SQ SCH ×2 (09:55→20:08)
[2019-02-24 11:00] VITALS: BP 114/47
[2019-02-24 15:00] VITALS: BP 140/73
[2019-02-24 19:58] VITALS: BP 129/58
[2019-02-24] MEDS: PRASUGREL HCL 10 MG TABLET PO SCH (20:07)
[2019-02-24] MEDS: ATORVASTATIN CALCIUM 40 MG TABLET PO SCH (20:08)
[2019-02-25] VITALS (9 sets, daily range): BP systolic 95–153; BP diastolic 55–98
[2019-02-25 04:19] LABS: HEMATOCRIT 26.7 % (36-48); MEAN CORPUSCULAR HEMOGLOBIN 29.7 pg (27.0-33.0); MEAN CORPUSCULAR HGB CONC 33.3 g/dL (32.0-36.0); MEAN CORPUSCULAR VOLUME 89.4 fL (79-99); PLATELET COUNT (AUTO) 242 K/uL (130-400); RED BLOOD CELL COUNT(AUTO) 2.99 MIL/uL (4.00-5.50); RED CELL DISTRIBUTION WIDTH 14.4 % (11.0-15.5)
[2019-02-25 04:28] LABS: CREATININE 0.7 mg/dL (0.5-1.5); POTASSIUM 3.5 mmol/L (3.5-5.1)
[2019-02-25] MEDS: LEVOTHYROXINE 25 MCG TABLET PO SCH (05:50)
[2019-02-25] MEDS: LEVOTHYROXINE 112 MCG TABLET PO SCH (05:51)
[2019-02-25] MEDS: POTASSIUM CHLORIDE 10% ELIXIR 20 MEQ/15 ML UDCUP PO PRN (05:51)
[2019-02-25] MEDS: IPRATROPIUM 0.5 MG/2.5 ML INH IH SCH ×4 (07:00→23:51)
[2019-02-25] MEDS: LISINOPRIL 5 MG TABLET PO SCH ×2 (09:49→20:27)
[2019-02-25] MEDS: ASPIRIN 81MG TAB.CHEW PO SCH (09:49)
[2019-02-25] MEDS: METOPROLOL TARTRATE 25 MG TAB PO SCH ×2 (09:49→20:28)
[2019-02-25] MEDS: FAMOTIDINE 20MG TAB 20 MG TAB PO SCH ×2 (09:49→20:27)
[2019-02-25] MEDS: ENOXAPARIN SODIUM 30 MG/0.3 ML SQ SCH ×2 (10:07→20:26)
--- NOTE | 2019-02-25 12:22 | NUR ---
Nutrition Follow-up: ordered repeat swallowing evaluation for 02/26/19. Pt. continues on TF with Vital AF 1.2@65ml/hr with 185ml free water flushes every 6 hrs. Current TF provides 1872kcal, 117gm Protein and 2005ml water daily. Pt. tolerating current Tf with no residuals noted. Labs reviewed(Alb 2.4). LBM: 02/23/19. SR-16, femoral puncture. Pt. with 3+ gen. edema. Recommendations: 1) Continue current Tube Feeding and water flushes. 2) Continue to monitor pt's nutritional status. 3) Consult RD as nutrition concerns arise. Addendum: 02/25/19 at [address] Amended: Links added.
[2019-02-25] MEDS ORDERED: ACETAMINOPHEN 325 MG TAB PO PRN (15:45)
[2019-02-25] MEDS ORDERED: ACETAMINOPHEN ELIXIR 650 MG/20.3 ML UDCUP ONE (15:53)
[2019-02-25] MEDS: CEFTRIAXONE SODIUM 1 GM IVP SCH (15:59)
[2019-02-25] MEDS ORDERED: ACETAMINOPHEN ELIXIR 650 MG/20.3 ML UDCUP NG PRN (16:00)
[2019-02-25] MEDS: FUROSEMIDE 20 MG TABLET PO SCH (16:04)
[2019-02-25] MEDS: PRASUGREL HCL 10 MG TABLET PO SCH (20:27)
[2019-02-25] MEDS: ATORVASTATIN CALCIUM 40 MG TABLET PO SCH (20:28)
[2019-02-26 03:26] VITALS: BP 122/53
[2019-02-26 04:25] LABS: MEAN CORPUSCULAR HEMOGLOBIN 30.1 pg (27.0-33.0); MEAN CORPUSCULAR HGB CONC 33.9 g/dL (32.0-36.0); MEAN CORPUSCULAR VOLUME 88.6 fL (79-99); NUCLEATED RED BLOOD CELLS 0.1 % (0.0-0.19); PLATELET COUNT (AUTO) 250 K/uL (130-400); RED BLOOD CELL COUNT(AUTO) 2.94 MIL/uL (4.00-5.50); WHITE BLOOD COUNT (AUTO) 10.9 K/uL (4.8-10.8)
[2019-02-26 04:36] LABS: CREATININE 0.7 mg/dL (0.5-1.5); MAGNESIUM 1.8 mg/dL (1.80-2.40); POTASSIUM 3.6 mmol/L (3.5-5.1)
[2019-02-26] MEDS: IPRATROPIUM 0.5 MG/2.5 ML INH IH SCH ×3 (06:28→19:04)
[2019-02-26] MEDS: LEVOTHYROXINE 25 MCG TABLET PO SCH (06:36)
[2019-02-26] MEDS: LEVOTHYROXINE 112 MCG TABLET PO SCH (06:36)
[2019-02-26 07:41] VITALS: BP 130/57
--- NOTE | 2019-02-26 09:45 | NUR ---
DYSPHAGIA EVAL COMPLETED. DELAYED SWALLOW WITH THIN LIQUIDS. RECOMMEND PUREED, HONEY-THICK LIQUIDS; PILLS CRUSHED WITH APPLESAUCE. RECOMMEND CONTINUED PLAN OF CARE ESTABLISHED DURING INITIAL EVALUATION. SAFE SWALLOW PRECAUTIONS REVIEWED WITH SON AT BEDSIDE. FISH ROE PROCESSOR DEMONSTRATED HOW TO REACH HONEY-THICK LIQUIDS. ALL QUESTIONS ANSWERED AT THIS TIME. Addendum: 02/26/19 at 1224 by LIZZETH URBINA, [facility] ST Amended: Links added.
[2019-02-26] MEDS: LISINOPRIL 5 MG TABLET PO SCH ×2 (09:52→20:43)
[2019-02-26] MEDS: FAMOTIDINE 20MG TAB 20 MG TAB PO SCH ×2 (09:52→20:44)
[2019-02-26] MEDS: ASPIRIN 81MG TAB.CHEW PO SCH (09:53)
[2019-02-26] MEDS: METOPROLOL TARTRATE 25 MG TAB PO SCH ×2 (09:53→20:44)
[2019-02-26] MEDS: ENOXAPARIN SODIUM 30 MG/0.3 ML SQ SCH ×2 (09:53→20:43)
[2019-02-26] MEDS: FUROSEMIDE 20 MG TABLET PO SCH ×2 (09:53→16:58)
[2019-02-26 11:47] VITALS: BP 136/57
--- NOTE | 2019-02-26 12:40 | NUR ---
DOBHOFF TUBE REMOVED ORDERED. TOLERATED WELL. CALL LIGHT WITHIN REACH. SON AT BEDSIDE.
--- NOTE | 2019-02-26 12:55 | NUR ---
SITTING UP IN BED EATING PUREE LUNCH. FLUIDS HONEY THICK CONSISTENCY. SON AT BEDSIDE.
--- NOTE | 2019-02-26 13:56 | NUR ---
DC PLAN VISITED WITH PATIENT AND SON. SPOKE TO PATIENT AND ALL THE CHILDREN. REFUSING TO SIGN MAR UNTIL THEY SPEAK TO ALL THE DOCTORS ESPECIALLY THE SECURITY AND PRIVACY CONSULTANT. SAYS THEY DONT FEEL MOM IS READY FOR AT LEAST A COUPLE OF DAYS. GAVE THEM LIST OF FACILITIES ANSWERED ALL QUESTIONS. SAID THEY ARE ALSO GOING TO TOUR FACILITIES. THEY DO NOT FEEL MOM CAN DO 3 HRS OF THERAPY WHICH MEANS THEY CAN NOT GO IRU. Addendum: 02/26/19 at 1358 by SPRING YANCEY RN CM Amended: Links added.
--- NOTE | 2019-02-26 14:26 | NUR ---
DR. Isabell MONTES IN ROOM SPEAKING WITH PT. RE:PLAN OF CARE. QUESTIONS ANSWERED BY DR. MONTES.
[2019-02-26 15:24] VITALS: BP 122/61
[2019-02-26] MEDS: CEFTRIAXONE SODIUM 1 GM IVP SCH (17:00)
[2019-02-26 19:49] VITALS: BP 137/54
[2019-02-26] MEDS: ATORVASTATIN CALCIUM 40 MG TABLET PO SCH (20:43)
[2019-02-26] MEDS: PRASUGREL HCL 10 MG TABLET PO SCH (20:43)
[2019-02-26 23:51] VITALS: BP 121/63
[2019-02-27] MEDS: IPRATROPIUM 0.5 MG/2.5 ML INH IH SCH ×5 (00:22→23:40)
[2019-02-27 03:48] VITALS: BP 123/54
[2019-02-27 04:05] LABS: HEMATOCRIT 26.4 % (36-48); MEAN CORPUSCULAR HEMOGLOBIN 30.1 pg (27.0-33.0); MEAN CORPUSCULAR HGB CONC 33.5 g/dL (32.0-36.0); NUCLEATED RED BLOOD CELLS 0.1 % (0.0-0.19); PLATELET COUNT (AUTO) 254 K/uL (130-400); RED BLOOD CELL COUNT(AUTO) 2.94 MIL/uL (4.00-5.50); RED CELL DISTRIBUTION WIDTH 15.3 % (11.0-15.5); WHITE BLOOD COUNT (AUTO) 9.6 K/uL (4.8-10.8)
[2019-02-27 04:23] LABS: CREATININE 0.8 mg/dL (0.5-1.5); MAGNESIUM 1.7 mg/dL (1.80-2.40); POTASSIUM 3.8 mmol/L (3.5-5.1)
[2019-02-27] MEDS: LEVOTHYROXINE 112 MCG TABLET PO SCH (06:34)
[2019-02-27] MEDS: LEVOTHYROXINE 25 MCG TABLET PO SCH (06:34)
[2019-02-27 07:00] VITALS: BP 130/58
--- NOTE | 2019-02-27 08:00 | NUR ---
ASSESSMENT PT IS AAOX3 DENIES CP DENIES SOB DENIES NV NO COMPLAINTS, SITTING UPRIGHT IN BED. BREATHING PATTERN IS EVEN AND UNLABORED. FAMILY IS AT BEDSIDE. TOLERATED MEAL AND MEDS. CALL LIGHT WITHIN REACH.
[2019-02-27] MEDS: FAMOTIDINE 20MG TAB 20 MG TAB PO SCH ×2 (08:12→20:42)
[2019-02-27] MEDS: FUROSEMIDE 20 MG TABLET PO SCH ×2 (08:13→16:28)
[2019-02-27] MEDS: ENOXAPARIN SODIUM 30 MG/0.3 ML SQ SCH ×2 (08:13→20:43)
[2019-02-27] MEDS: ASPIRIN 81MG TAB.CHEW PO SCH (08:13)
[2019-02-27] MEDS: LISINOPRIL 5 MG TABLET PO SCH ×2 (08:13→20:42)
[2019-02-27] MEDS: METOPROLOL TARTRATE 25 MG TAB PO SCH ×2 (08:13→20:42)
[2019-02-27 11:00] VITALS: BP 126/47
--- NOTE | 2019-02-27 11:20 | NUR ---
ALL 3 PORTS PICC LINE FLUSHED WITH 10CC NS EACH PORT. PORTS CLAMPED.
--- NOTE | 2019-02-27 13:30 | NUR ---
STATUS DENIES CP DENIES SOB SITTING UPRIGHT IN CARDIAC CHAIR. FAMILY IS AT BEDSIDE. CALL LIGHT WITHIN REACH.
--- NOTE | 2019-02-27 14:49 | NUR ---
DC PLAN NO NOTES FROM CARDIO SINCE THE . ASKED NURSING TO F/U MAKE SURE PATIENT CLEARED FOR DISCHARGE AND IF THEY WILL BE STOPPING BY SINCE FAMILY WANTS TO TALK TO CARDIO BEFORE SIGNING MAR FOR FACILITY. Addendum: 02/27/19 at 1450 by SPRING YANCEY RN CM Amended: Links added.
--- NOTE | 2019-02-27 15:00 | NUR ---
CALLED OFFICE OF DR Jason ADLER STATES HE IS NOT IN OFFICE, INSTRUCTED TO CALL HIS CELL. CALLED HIS CELL, NO ANSWER.
[2019-02-27] MEDS: CEFTRIAXONE SODIUM 1 GM IVP SCH (15:05)
[2019-02-27 15:40] VITALS: BP 119/73
--- NOTE | 2019-02-27 15:49 | NUR ---
RD Follow Up Pt s/p extubation. Tube feeding discontinued. Pt tolerating Heart Healthy Puree, HTL. Pt with fair PO intake (50-75%), no report of GI distress. Noted Pt with severe fluid retention; Recommend 1500mL Fluid Restriction as medically feasible. Pt LBM 02/25/19. Pt monitored labs: Ca 8.4, Mg 1.70, Alb 2.4. RD to continue to monitor. Please notify RD as additional nutrition concerns arise. Thank you. Addendum: 02/27/19 at [address] Amended: Links added.
--- NOTE | 2019-02-27 16:30 | NUR ---
DR Jason ADLER ROUNDED SAW PATIENT. CURRENT MEDS ARE APPROPRIATE NO NEW ORDERS RECEIVED.
--- NOTE | 2019-02-27 17:55 | NUR ---
PATIENT REFUSING REMOVAL OF GÓMEZ CATHETER SON ALSO WISHES TO LEAVE IT IN PLACE FOR NOW FOR PATIENT COMFORT. REFUSAL FORM SIGNED AND PLACED IN CHART. PATIENT STATES SHE WILL DECIDE LATER TONIGHT TO AGREE TO REMOVE IT.
[2019-02-27 19:10] VITALS: BP 130/89
[2019-02-27] MEDS: PRASUGREL HCL 10 MG TABLET PO SCH (20:41)
[2019-02-27] MEDS: ATORVASTATIN CALCIUM 40 MG TABLET PO SCH (20:41)
[2019-02-27 23:22] VITALS: BP 147/63
[2019-02-28 04:05] VITALS: BP 146/60
[2019-02-28] MEDS: LEVOTHYROXINE 25 MCG TABLET PO SCH (06:15)
[2019-02-28] MEDS: LEVOTHYROXINE 112 MCG TABLET PO SCH (06:15)
[2019-02-28] MEDS: IPRATROPIUM 0.5 MG/2.5 ML INH IH SCH ×3 (06:44→18:56)
[2019-02-28 07:00] VITALS: BP 133/65
[2019-02-28] MEDS: ASPIRIN 81MG TAB.CHEW PO SCH (07:14)
[2019-02-28] MEDS: LISINOPRIL 5 MG TABLET PO SCH (07:15)
[2019-02-28] MEDS: FUROSEMIDE 20 MG TABLET PO SCH ×2 (07:15→16:47)
[2019-02-28] MEDS: METOPROLOL TARTRATE 25 MG TAB PO SCH (07:15)
[2019-02-28] MEDS: ENOXAPARIN SODIUM 30 MG/0.3 ML SQ SCH (07:15)
[2019-02-28] MEDS: FAMOTIDINE 20MG TAB 20 MG TAB PO SCH (07:15)
--- NOTE | 2019-02-28 10:40 | NUR ---
DC PLAN VISITED WITH PATIENT AND FAMILY. SON CALLED ME SAID THEY FINALLY DECIDED [place] [facility] S[place]. INFO SENT. REP NOTIFIED. MOT READY IN CHART NEEDS SIGNATURES. PATIENT WILL NEED AMBULANCE FOR SAFETY. PATIENT MORBID OBESE 60.5 KG/M2. S/P CARDIAC ARREST AND INTUBATION STILL VERY WEAK AND DEBILITATED. LET FAMILY KNOW THAT THERE COULD BE A BILL SINCE SHE IS NOT ON 02 SAID OKAY TO SEND VIA EMS DO NOT FEEL SAFE TO TAKE MOM VIA PRIVATE CAR. Addendum: 02/28/19 at 1042 by SPRING YANCEY RN CM Amended: Links added.
[2019-02-28 10:49] VITALS: BP 132/67
--- NOTE | 2019-02-28 13:00 | NUR ---
SWALLOW TREATMENT COMPLETED. S: PT SEATED IN CHAIR UPON solder leveler printed circuit boards ARRIVAL. DAUGHTER PRESENT AT BEDSIDE DURING THE SESSION. PT COOPERATIVE DURING THE SESSION AND IN GOOD SPIRITS. O:Pt CURRENTLY TARGETING SWALLOWING GOALS. PT PARTICIPATED IN THERAPEUTIC TRIALS OF ADVANCED TEXTURES OF REGULAR, MIXED, AND THIN LIQUIDS (VIA CUP SIP) X10 (COMPENSATORY STRATEGY: CHIN TUCK) WITH NO OVERT S/S OF ASPIRATION. Pt WITH IMPROVED HYO-LARYNGEAL APPROXIMATION DURING MANUAL PALPATION. CLEAR VOCAL QUALITY AFTER TRIALS NOTED. A: PT WITH IMPROVED VOCAL QUALITY VS APHONIC DURING INITIAL MBSS. PLEASE NOTE Pt WITH IMPROVED LARYNGEAL ELEVATION/EXCURSION, AND TIMELINESS OF SWALLOW. Pt WITH GOOD PROGRESS IN THE LAST DAYS. P: RECOMMEND DIET UPGRADE TO REGULAR TEXTURE, THIN LIQUIDS, PILLS WHOLE WITH LIQUIDS WITH CHIN TUCK, SLOW RATE, SMALL BITES AND SIPS AND NO STRAWS. TUTORING MANAGER COORDINATED CARE WITH NURSE ALICEA. TUTORING MANAGER EDUCATED Pt AND DAUGHTER ON USE OF CHIN TUCK. SKILLED SPEECH THERAPY CONTINUES TO BE RECOMMENDED AT THIS TIME. DAUGHTER AND Pt VERBALIZED AGREEMENT WITH RECOMMENDATIONS. Addendum: 03/01/19 at [address] Amended: Links added.
[2019-02-28 16:00] VITALS: BP 133/70
--- NOTE | 2019-02-28 16:35 | NUR ---
CALLED TO GIVE REPORT BUT UNABLE DUE TO " A LOT ADMISSIONS AND DISCHARGES" AND ARE VERY BUSY AT TIME. ERICA REPORTS IF COULD CALL BACK. PROVIDED WITH RETURN PHONE NUMBER TO CALL BACK TO GET REPORT, ERICA VERBALIZED UNDERSTANDING.
[2019-02-28] MEDS: CEFTRIAXONE SODIUM 1 GM IVP SCH (16:47)
--- NOTE | 2019-02-28 19:35 | NUR ---
NOTE RECEIVED REPORT FROM NIXON FORD. PATIENT AWAITING EMS TRANSPORT TO [facility]. PATIENT IS SITTING UP IN CHAIR. FAMILY MEMBER AT BEDSIDE. VOICES NO ISSUES AT THIS TIME.
--- NOTE | 2019-02-28 20:58 | NUR ---
NOTE EMS ARRIVED TO TRANSPORT PATIENT. PACKET FOR FACILITY PROVIDED TO EMS STAFF.
== END 2019-02-28 20:59 | DRG 270 ==
LOC: EDH 21:48 → EDHIP 23:54 → 2BH 02-14 00:38 → 2DH 02-22 15:58
PROVIDERS: ADMIT Internal Medicine; ATTEND Internal Medicine
PROC: 5A02210 Assistance with Cardiac Output using Balloon Pump, Continuous (ICD-10-PCS; principal; 2019-02-14)
PROC: 02703ZZ Dilation of Coronary Artery, One Artery, Percutaneous Approach (ICD-10-PCS; 2019-02-14)
PROC: 02C03ZZ Extirpation of Matter from Coronary Artery, One Artery, Percutaneous Approach (ICD-10-PCS; 2019-02-14)
PROC: B2111ZZ Fluoroscopy of Multiple Coronary Arteries using Low Osmolar Contrast (ICD-10-PCS; 2019-02-14)
PROC: 02HV33Z Insertion of Infusion Device into Superior Vena Cava, Percutaneous Approach (ICD-10-PCS; 2019-02-14)
PROC: 5A12012 Performance of Cardiac Output, Single, Manual (ICD-10-PCS; 2019-02-14)
PROC: 5A1955Z Respiratory Ventilation, Greater than 96 Consecutive Hours (ICD-10-PCS; 2019-02-14)
PROC: 0BH17EZ Insertion of Endotracheal Airway into Trachea, Via Natural or Artificial Opening (ICD-10-PCS; 2019-02-14)
PROC: 0DH97UZ Insertion of Feeding Device into Duodenum, Via Natural or Artificial Opening (ICD-10-PCS; 2019-02-22)
DX: I21.09 ST elevation (STEMI) myocardial infarction involving other coronary artery of anterior wall (principal); J96.01 Acute respiratory failure with hypoxia; R57.0 Cardiogenic shock; J18.9 Pneumonia, unspecified organism; I13.0 Hypertensive heart and chronic kidney disease with heart failure and stage 1 through stage 4 chronic kidney disease, or unspecified chronic kidney disease; N17.9 Acute kidney failure, unspecified; I47.2 Ventricular tachycardia; J44.0 Chronic obstructive pulmonary disease with (acute) lower respiratory infection; G93.40 Encephalopathy, unspecified; L03.116 Cellulitis of left lower limb; Z68.44 Body mass index [BMI] 60.0-69.9, adult; E66.01 Morbid (severe) obesity due to excess calories; M06.9 Rheumatoid arthritis, unspecified; N18.3 Chronic kidney disease, stage 3 (moderate); I25.10 Atherosclerotic heart disease of native coronary artery without angina pectoris; F32.9 Major depressive disorder, single episode, unspecified; D64.9 Anemia, unspecified; E03.9 Hypothyroidism, unspecified; E78.5 Hyperlipidemia, unspecified; E86.0 Dehydration; G47.33 Obstructive sleep apnea (adult) (pediatric); I50.9 Heart failure, unspecified; J38.4 Edema of larynx; R32 Unspecified urinary incontinence; M15.9 Polyosteoarthritis, unspecified; R13.10 Dysphagia, unspecified; I25.2 Old myocardial infarction; Z88.5 Allergy status to narcotic agent; Z88.2 Allergy status to sulfonamides; Z79.02 Long term (current) use of antithrombotics/antiplatelets; Z79.82 Long term (current) use of aspirin; Z79.899 Other long term (current) drug therapy; Z98.61 Coronary angioplasty status
CPT/HCPCS: 31500; 33967; 36415; 36600; 43752; 70450; 71045; 74230; 80048; 80053; 80305; 81001; 82435; 82550; 82803; 82947; 82948; 83605; 83735; 83874; 83880; 84100; 84132; 84295; 84436; 84439; 84443; 84481; 84484; 85018; 85025; 85027; 85610; 85730; 87040; 87071; 87088; 87205; 92526; 92610; 92611; 92920; 92950; 93005; 93306; 93454; 94002; 94003; 94640; 94664; 94667; 94668; 97039; C1725; C1769; C1887; C1894; C9113; G0378; J0171; J0282; J0330; J0360; J0583; J0696; J1100; J1265; J1327; J1644; J1650; J1940; J2060; J2250; J2704; J3010; J3475; J3480; J3490; J7030; J7120; Q9967

== ENCOUNTER 2019-07-31 01:38 | Observation (INO) | payer MEDICARE ==
[~2019-07-31 01:38] MED LIST changes: -AMIODARONE HCL 50 MG/ML 3 ML VIAL IV ONE; -EPINEPHRINE 0.1 MG/ML 10 ML SYG IVP ONE; -ETOMIDATE 2 MG/ML 10 ML VIAL IVP ONE; +FLUO20CA35 PO; +LEVO137T2 PO; -ROCURONIUM BROMIDE 10MG/1ML 5ML VL IV ONE; -SODIUM BICARB 8.4% 50ML SYRINGE IVP ONE; -SUCCINYLCHOLINE CHLORIDE 20 MG/ML 10 ML VIAL IVP ONE; +VALS1TAB73 PO
[2019-07-31 02:41] LABS: BASOPHILS % (AUTO) 0.6 % (0.0-5.0); EOSINOPHILS % (AUTO) 4.1 % (0.0-8.0); HEMATOCRIT 36.9 % (36-48); LYMPHOCYTES % (AUTO) 14.5 % (21.0-51.0); MEAN CORPUSCULAR HGB CONC 32.2 g/dL (32.0-36.0); MEAN CORPUSCULAR VOLUME 86.8 fL (79-99); MONOCYTES % (AUTO) 7.1 % (3.0-13.0); NEUTROPHILS % (AUTO) 73.4 % (40.0-77.0); PLATELET COUNT (AUTO) 226 K/uL (130-400); RED BLOOD CELL COUNT(AUTO) 4.25 MIL/uL (4.00-5.50); RED CELL DISTRIBUTION WIDTH 15.6 % (11.0-15.5); WHITE BLOOD COUNT (AUTO) 9.6 K/uL (4.8-10.8)
[2019-07-31 02:52] LABS: POTASSIUM 4.1 mmol/L (3.5-5.1)
[2019-07-31 02:57] LABS: ALBUMIN 3.3 g/dL (3.5-5.0); BILIRUBIN,TOTAL 0.8 mg/dL (0.2-1.0); TOTAL PROTEIN, SERUM 7.1 g/dL (6.0-8.3)
[2019-07-31] MEDS ORDERED: FUROSEMIDE 20 MG TABLET ONE (03:54)
[2019-07-31] MEDS ORDERED: METOPROLOL TARTRATE 25 MG TAB ONE ×2 (03:55→23:11)
[2019-07-31 09:14] LABS: CREATINE KINASE, TOTAL 83 U/L (21-232); MYOGLOBIN 88 ng/mL (10-92); TROPONIN I < 0.04 ng/mL (0.00-0.06)
[2019-07-31] MEDS ORDERED: ENOXAPARIN SODIUM 60 MG/0.6 ML SQ ONE (10:34)
[2019-07-31] MEDS ORDERED: ENOXAPARIN SODIUM 100 MG/1 ML SQ ONE (10:35)
--- NOTE | 2019-07-31 12:51 | NUR ---
DCP NOTE MEET WITH PATIENT IN ROOM. PER PATIENT, IS INDEPENDENT WITH ADLS, LIVES WITH SON, DEBI, HAS [facility] 2 VISITS PER WEEK WHERE NURSE ASSESS AND MONITORS HOME MEDICATION ADMINISTRATION, HAS WALKER AND SC IN USE AND FEELS SAFE TO RETURN HOME AFTER HOSPITAL DISCHARGE. Addendum: 08/01/19 at 1252 by NEFTALI ASTORGA RN CM Amended: Links added.
[2019-07-31 16:14] LABS: CREATINE KINASE, TOTAL 82 U/L (21-232); MYOGLOBIN 62 ng/mL (10-92); TROPONIN I < 0.04 ng/mL (0.00-0.06)
[2019-07-31 21:47] LABS: CREATINE KINASE, TOTAL 74 U/L (21-232); MYOGLOBIN 48 ng/mL (10-92); TROPONIN I < 0.04 ng/mL (0.00-0.06)
[2019-07-31] MEDS ORDERED: APIXABAN 2.5 MG TABLET PO ONE (23:11)
[2019-08-01] MEDS ORDERED: TELM20TA8 PO (09:52)
[2019-08-01] MEDS ORDERED: ATOR40TA69 PO (09:52)
[2019-08-01] MEDS ORDERED: AEC81 PO (09:52)
[2019-08-01] MEDS ORDERED: METO-408 PO (09:52)
[2019-08-01] MEDS ORDERED: PRAS10TA9 PO (09:52)
[2019-08-01] MEDS ORDERED: FLUO10CA21 PO (09:52)
[2019-08-01] MEDS ORDERED: FURO20TA4 PO (09:52)
[2019-08-01] MEDS ORDERED: FAMO20TA8 PO (09:52)
[2019-08-01] MEDS ORDERED: APIXABAN 5 MG TABLET PO SCH (10:00)
[2019-08-01] MEDS ORDERED: METOPROLOL TARTRATE 25 MG TAB ONE (10:36)
[2019-08-01] MEDS ORDERED: APIXABAN 2.5 MG TABLET PO ONE (10:36)
[2019-08-01] MEDS ORDERED: METOPROLOL TARTRATE 25 MG TAB PO SCH (21:00)
== END 2019-08-01 12:00 | disposition home or self-care (01) ==
LOC: EDH 01:38 → EDHIP 06:29
PROVIDERS: ADMIT Internal Medicine; ATTEND Internal Medicine
DX: I48.0 Paroxysmal atrial fibrillation (principal); I25.10 Atherosclerotic heart disease of native coronary artery without angina pectoris; I25.2 Old myocardial infarction; I10 Essential (primary) hypertension; E03.9 Hypothyroidism, unspecified; E78.00 Pure hypercholesterolemia, unspecified; Z86.711 Personal history of pulmonary embolism; Z90.89 Acquired absence of other organs; Z79.82 Long term (current) use of aspirin; Z79.899 Other long term (current) drug therapy; Z88.5 Allergy status to narcotic agent; Z88.2 Allergy status to sulfonamides
CPT/HCPCS: 36415; 71045; 80053; 82550 ×4; 83874 ×3; 83880; 84443; 84484 ×4; 85025; 93005 ×2; 93306; 93356; 99284; G0378 ×30; J1650 ×2

== ENCOUNTER 2019-08-18 15:01 | Observation (INO) | payer MEDICARE ==
[~2019-08-18] VITALS: Ht 167.6 cm; Wt 155.1 kg
[~2019-08-18 15:01] MED LIST changes: +ATOR40TA69 PO; +FAMO20TA8 PO; +FLUO10CA21 PO; -FLUO20CA35 PO; +FURO20TA4 PO; +TELM20TA8 PO; -VALS1TAB73 PO
[2019-08-18 15:33] LABS: BASOPHILS % (AUTO) 0.3 % (0.0-5.0); EOSINOPHILS % (AUTO) 1.8 % (0.0-8.0); HEMATOCRIT 36.1 % (36-48); LYMPHOCYTES % (AUTO) 8.8 % (21.0-51.0); MEAN CORPUSCULAR HEMOGLOBIN 27.6 pg (27.0-33.0); MEAN CORPUSCULAR HGB CONC 31.3 g/dL (32.0-36.0); NEUTROPHILS % (AUTO) 82.9 % (40.0-77.0); PLATELET COUNT (AUTO) 180 K/uL (130-400); RED CELL DISTRIBUTION WIDTH 15.1 % (11.0-15.5)
[2019-08-18 15:53] LABS: INR 1.17 (0.85-1.15); PARTIAL THROMBOPLASTIN TIME 31.7 SEC (26.3-35.5); PROTHROMBIN TIME 12.2 SEC (9.6-11.6)
[2019-08-18 15:57] LABS: CARBON DIOXIDE 28 mmol/L (21-32); CHLORIDE 103 mmol/L (101-111); GLOMERULAR FILTR. RATE CALC 58 mL/min (>60); GLUCOSE,RANDOM 102 mg/dL (70-105); POTASSIUM 4.4 mmol/L (3.5-5.1); SODIUM SERUM 140 mmol/L (136-145); UREA NITROGEN, BLOOD 16 mg/dL (7-18)
[2019-08-18] MEDS ORDERED: ACETAMINOPHEN 325 MG TAB ONE ×2 (16:01→21:32)
[2019-08-18 16:10] LABS: ALANINE AMINOTRANSFERASE 22 U/L (12-78); ALBUMIN 3.4 g/dL (3.5-5.0); ASPARTATE AMINOTRANSFERASE 23 U/L (10-37); BILIRUBIN,TOTAL 1.4 mg/dL (0.2-1.0); CREATINE KINASE, TOTAL 49 U/L (21-232); MYOGLOBIN 50 ng/mL (10-92); TOTAL PROTEIN, SERUM 7.2 g/dL (6.0-8.3); TROPONIN I < 0.04 ng/mL (0.00-0.06)
[2019-08-18 16:30] LABS: APPEARANCE,URINE Clear (CLEAR); BILIRUBIN,URINE Negative (NEGATIVE); COLOR,URINE Yellow (YELLOW); GLUCOSE, URINE (UA) Negative (NEGATIVE); KETONES,URINE Negative (NEGATIVE); LEUKOCYTE ESTERASE ,URINE Moderate (NEGATIVE); NITRATE,URINE Negative (NEGATIVE); OCCULT BLOOD,URINE Negative (NEGATIVE); PROTEIN,URINE Negative (NEGATIVE)
[2019-08-18 16:57] LABS: BACTERIA,URINE Few /HPF (None Seen); RBC,URINE None Seen /HPF (0-1); SQUAMOUS EPITHELIAL CELL,UR 0-2 /HPF (0-2)
[2019-08-18] MEDS ORDERED: CEFTRIAXONE SODIUM 1 GM ONE (18:36)
[2019-08-18] MEDS ORDERED: SODIUM CHLORIDE 0.9% 100 ML IV ONE (18:36)
[2019-08-19] MEDS ORDERED: ACETAMINOPHEN 325 MG TAB ONE (09:17)
[2019-08-19] MEDS ORDERED: APIX5TAB PO (15:10)
[2019-08-19] MEDS ORDERED: METO25TA6 PO (15:12)
--- NOTE | 2019-08-19 15:38 | NUR ---
Discharge information given at the bedside with son at side. Emphasis on dx, s/s to monitor for, and when to seek emergency care vs dial 911. Follow up appt made with Dr. Rosen for tomorrow 08/20 @ 9:15 am. New rx for z pack already called in to pharmacy of choice, which is [facility] on [address] [place] [address]. Discussed purpose, route, frequency, and duration of treatment, at well as side effects and adverse effects. All questions addressed. PIV already removed by ER nurse Jamel. Pt wheeled out by ER staff or transport home via private car. Pt in stable condition at time of discharge.
[2019-08-19] MEDS ORDERED: CEFTRIAXONE SODIUM 1 GM IVP SCH (18:00)
== END 2019-08-19 15:37 | disposition home or self-care (01) ==
LOC: EDH 15:01 → EDHIP 18:26
PROVIDERS: ADMIT Internal Medicine; ATTEND Internal Medicine
DX: I48.91 Unspecified atrial fibrillation (principal); J02.9 Acute pharyngitis, unspecified; D64.9 Anemia, unspecified; I25.10 Atherosclerotic heart disease of native coronary artery without angina pectoris; E89.0 Postprocedural hypothyroidism; E78.5 Hyperlipidemia, unspecified; I10 Essential (primary) hypertension; E78.00 Pure hypercholesterolemia, unspecified; I25.2 Old myocardial infarction; Z79.01 Long term (current) use of anticoagulants; Z86.711 Personal history of pulmonary embolism; Z88.2 Allergy status to sulfonamides; Z88.5 Allergy status to narcotic agent; Z86.74 Personal history of sudden cardiac arrest; Z79.899 Other long term (current) drug therapy
CPT/HCPCS: 36415; 71045; 80053; 81001; 82550; 83605; 83690; 83874; 83880; 84145; 84484 ×4; 85025; 85610; 85730; 87040; 87088; 87804 ×2; 93005; 99285; G0378 ×8; J0696

== ENCOUNTER 2020-04-30 06:06 | Day surgery (SDC) | payer MEDICARE ==
[2020-04-29 11:00] LABS: BASOPHILS % (AUTO) 0.8 % (0.0-5.0); EOSINOPHILS % (AUTO) 2.1 % (0.0-8.0); HEMATOCRIT 43.4 % (36-48); LYMPHOCYTES % (AUTO) 17.6 % (21.0-51.0); MEAN CORPUSCULAR HEMOGLOBIN 27.8 pg (27.0-33.0); MEAN CORPUSCULAR HGB CONC 31.3 g/dL (32.0-36.0); MEAN CORPUSCULAR VOLUME 88.8 fL (79-99); MONOCYTES % (AUTO) 5.6 % (3.0-13.0); NEUTROPHILS % (AUTO) 73.8 % (40.0-77.0); PLATELET COUNT (AUTO) 257 K/uL (130-400); RED BLOOD CELL COUNT(AUTO) 4.89 MIL/uL (4.00-5.50); RED CELL DISTRIBUTION WIDTH 13.8 % (11.0-15.5); WHITE BLOOD COUNT (AUTO) 7.3 K/uL (4.8-10.8)
[2020-04-29 11:09] LABS: POTASSIUM 4.2 mmol/L (3.5-5.1)
[2020-04-29 11:32] LABS: PARTIAL THROMBOPLASTIN TIME 31.7 SEC (26.3-35.5); PROTHROMBIN TIME 10.8 SEC (9.6-11.6)
[2020-04-29 12:12] VITALS: BP 152/63
--- NOTE | 2020-04-29 12:27 | NUR ---
HAIRLINE FRACTURE TO RIGHT ELBOW. ARM IN SLING. DR. ROMERO AWARE Addendum: 04/29/20 at 1228 by LALA ALVARADO RN RN Amended: Links added.
[2020-04-30] VITALS (8 sets, daily range): BP systolic 100–140; BP diastolic 44–75
[~2020-04-30] VITALS: Ht 170.2 cm; Wt 153.0 kg
[~2020-04-30 06:06] MED LIST changes: +APIX5TAB PO; +ATOR10TA69 PO; -ATOR40TA69 PO; -FURO20TA4 PO; +SACU1TAB PO; +SODIUM CHLORIDE 0.9% 1000ML 1,000 ML IV SCH; -TELM20TA8 PO
[2020-04-30] MEDS ORDERED: MEPERIDINE-PF 25 MG/ML SYG ONE ×3 (07:37→10:47)
[2020-04-30] MEDS ORDERED: HEPARIN SODIUM 1000UNIT/ML 10ML VIAL ONE (07:37)
[2020-04-30] MEDS ORDERED: MIDAZOLAM HCL 1 MG/ML 2ML VIAL ONE ×3 (07:37→10:47)
[2020-04-30] MEDS ORDERED: LIDOCAINE HCL 2% 20ML ONE (07:37)
--- NOTE | 2020-04-30 07:40 | NUR ---
procedure pt taken to scheduled procedure via bed,no distress noted. Dr. Monique aware that patient has hard time lying flat. Ana rn laborer cook house nurse aware also. pts son at bedside.
[2020-04-30] MEDS ORDERED: ATROPINE SULFATE 0.1 MG/ML 10 ML SYG IVP ONE (09:05)
--- NOTE | 2020-04-30 12:05 | NUR ---
post received pt back from photo lab specialist. s/p successful aflutter ablation, see post cath assessment. right groin dressing dry and intac.t vs stable on arrival. pt instructed to maintain bedrest for 4hrs. plan of care discuss with patient /son. both verbalized understanding. call light within reach.
--- NOTE | 2020-04-30 13:45 | NUR ---
HANDOFF COMMUNICATION RECEIVED REPORT FROM STEFFANY MANRIQUE RN AT BEDSIDE USING SBAR. PATIENT AAOX3,VITAL SIGNS STABLE. DRESSING TO RIGHT GROIN DRY/INTACT, NO HEMATOMA. AREA SOFT NONTENDER.
--- NOTE | 2020-04-30 15:45 | NUR ---
DISCHARGE INSTRUCTIONS PROVIDED TO PATIENT'S SON AND FOLLOW UP APPOINTMENT PROVIDED WELL. FEMORAL SITE CARE INSTRUCTIONS PROVIDED. INSTRUCTED PATIENT TO RESUME HOME MEDS AND TO START TAKING ELIQUIS TONIGHT. PATIENT AND SON VERBALIZED UNDERSTANDING.
--- NOTE | 2020-04-30 16:00 | NUR ---
PATIENT DISCHARGED FROM FACILITY VIA WHEELCHAIR BY JOSETTE. PATIENT ASSISTED INTO PRIVATE VEHICLE DRIVEN BY SON.
== END 2020-04-30 16:00 | disposition home or self-care (01) ==
LOC: DAH 06:06
PROVIDERS: ATTEND Internal Medicine Cardiovascular Disease
DX: I48.3 Typical atrial flutter (principal); I25.10 Atherosclerotic heart disease of native coronary artery without angina pectoris; I11.0 Hypertensive heart disease with heart failure; I50.22 Chronic systolic (congestive) heart failure; I25.2 Old myocardial infarction; I25.5 Ischemic cardiomyopathy; E78.5 Hyperlipidemia, unspecified; I48.0 Paroxysmal atrial fibrillation; G47.33 Obstructive sleep apnea (adult) (pediatric); Z79.01 Long term (current) use of anticoagulants; Z79.890 Hormone replacement therapy; Z85.850 Personal history of malignant neoplasm of thyroid; Z90.710 Acquired absence of both cervix and uterus; Z98.890 Other specified postprocedural states; Z88.8 Allergy status to other drugs, medicaments and biological substances
CPT/HCPCS: 36415; 80048; 85025; 85610; 85730; 93005 ×2; 93613; 93621; 93653; A4215; A4216; A4221; A4222; A4223 ×3; A4606; A4649 ×2; A4663; C1730; C1732; C1893; C1894 ×2; J1644 ×2; J2175 ×3; J2250 ×3; J3490; J7030; 99156; 99157; J0461

== ENCOUNTER → 2020-08-21 | Outpatient (CLI) | payer MEDICARE ==
[~2020-08-21] VITALS: Ht 167.6 cm; Wt 154.2 kg
[~2020-08-21] MED LIST changes: +REGADENOSON 0.4 MG/5 ML PF SYG IVP SCH; -SODIUM CHLORIDE 0.9% 1000ML 1,000 ML IV SCH
== END | disposition home or self-care (01) ==
LOC: SHCH 09:11
PROVIDERS: ATTEND Internal Medicine Cardiovascular Disease
DX: I47.1 Supraventricular tachycardia (principal); I49.5 Sick sinus syndrome
CPT/HCPCS: 78452; 93017; 96374; A9500 ×2; J2785

== ENCOUNTER → 2020-09-07 | Outpatient (CLI) | payer MEDICARE ==
[~2020-09-07] MED LIST changes: -REGADENOSON 0.4 MG/5 ML PF SYG IVP SCH
== END | disposition home or self-care (01) ==
LOC: SHCH 10:00
PROVIDERS: ATTEND Internal Medicine Cardiovascular Disease
DX: I35.8 Other nonrheumatic aortic valve disorders (principal); I51.7 Cardiomegaly; I44.0 Atrioventricular block, first degree; I49.5 Sick sinus syndrome
CPT/HCPCS: 93306; 93356

== ENCOUNTER 2020-11-09 05:58 | Day surgery (SDC) | payer MEDICARE ==
[2020-11-06 09:33] LABS: BASOPHILS % (AUTO) 0.7 % (0.0-5.0); EOSINOPHILS % (AUTO) 3.2 % (0.0-8.0); HEMATOCRIT 42.1 % (36-48); LYMPHOCYTES % (AUTO) 19.4 % (21.0-51.0); MEAN CORPUSCULAR HEMOGLOBIN 29.6 pg (27.0-33.0); MEAN CORPUSCULAR HGB CONC 31.8 g/dL (32.0-36.0); MEAN CORPUSCULAR VOLUME 92.9 fL (79-99); MONOCYTES % (AUTO) 7.5 % (3.0-13.0); PLATELET COUNT (AUTO) 205 K/uL (130-400); RED BLOOD CELL COUNT(AUTO) 4.53 MIL/uL (4.00-5.50); RED CELL DISTRIBUTION WIDTH 13.5 % (11.0-15.5); WHITE BLOOD COUNT (AUTO) 5.9 K/uL (4.8-10.8)
[2020-11-06 09:36] LABS: APPEARANCE,URINE Clear (CLEAR); BILIRUBIN,URINE Negative (NEGATIVE); COLOR,URINE Yellow (YELLOW); GLUCOSE, URINE (UA) Negative (NEGATIVE); KETONES,URINE Negative (NEGATIVE); LEUKOCYTE ESTERASE ,URINE Moderate (NEGATIVE); NITRATE,URINE Negative (NEGATIVE); OCCULT BLOOD,URINE Negative (NEGATIVE); PROTEIN,URINE Negative (NEGATIVE)
[2020-11-06 09:44] LABS: CREATININE 1.1 mg/dL (0.5-1.5)
[2020-11-06 09:53] LABS: INR 1.05 (0.85-1.15); PROTHROMBIN TIME 11.4 SEC (9.6-11.6)
[2020-11-06 09:54] LABS: PARTIAL THROMBOPLASTIN TIME 30.8 SEC (26.3-35.5)
[2020-11-06 09:57] LABS: RBC,URINE 0-1 /HPF (0-1)
[2020-11-06 09:58] LABS: BACTERIA,URINE Rare /HPF (None Seen); SQUAMOUS EPITHELIAL CELL,UR Few /HPF (0-2); WBC,URINE 0-1 /HPF (0-1)
[2020-11-06 18:18] VITALS: BP 170/71
[2020-11-09] VITALS (10 sets, daily range): BP systolic 131–155; BP diastolic 47–66
[2020-11-09] MEDS ORDERED: SODIUM CHLORIDE 0.9% 1000ML 1,000 ML IV ONE (06:22)
[2020-11-09] MEDS ORDERED: LIDOCAINE HCL 1% 20 ML VIAL ONE (07:13)
[2020-11-09] MEDS ORDERED: HEPARIN SODIUM 1000UNIT/ML 10ML VIAL ONE (07:13)
[2020-11-09] MEDS ORDERED: NICARDIPINE HCL 25 MG/10 ML ML IV ONE (07:14)
[2020-11-09] MEDS ORDERED: IOHEXOL 350 MG/ML 100ML INFUS..BTL IV ONE (07:14)
[2020-11-09] MEDS ORDERED: NITROGLYCERIN 2 MG/VIAL VIAL IV ONE (07:14)
[2020-11-09] MEDS ORDERED: IOHEXOL-350 50ML VIAL IV ONE (07:14)
[2020-11-09] MEDS ORDERED: SACU1TAB PO (07:29)
[2020-11-09] MEDS ORDERED: MIDAZOLAM HCL 1 MG/ML 2ML VIAL ONE (07:46)
[2020-11-09] MEDS ORDERED: FENTANYL CITRATE PF 50 MCG/1 ML 2ML VIAL ONE (07:47)
[2020-11-09] MEDS ORDERED: SODIUM CHLORIDE 0.9% 1000ML 1,000 ML IV SCH (08:30)
== END 2020-11-09 12:50 | disposition home or self-care (01) ==
LOC: DAH 05:58
PROVIDERS: ATTEND Internal Medicine Cardiovascular Disease
DX: R94.39 Abnormal result of other cardiovascular function study (principal); I25.118 Atherosclerotic heart disease of native coronary artery with other forms of angina pectoris; R06.00 Dyspnea, unspecified; I11.0 Hypertensive heart disease with heart failure; I50.41 Acute combined systolic (congestive) and diastolic (congestive) heart failure; E78.5 Hyperlipidemia, unspecified; G47.33 Obstructive sleep apnea (adult) (pediatric); Z79.01 Long term (current) use of anticoagulants; Z79.899 Other long term (current) drug therapy; Z99.89 Dependence on other enabling machines and devices; Z90.710 Acquired absence of both cervix and uterus; Z90.89 Acquired absence of other organs; Z88.2 Allergy status to sulfonamides; Z88.5 Allergy status to narcotic agent
CPT/HCPCS: 36415; 71045; 80048; 81001; 85025; 85610; 85730; 87088; 93005; 93458; A4215; A4216; A4221; A4222; A4223 ×3; A4606; A4663; C1769; C1894; J1644 ×2; J2250; J3010; J3490 ×2; J7030; Q9965; Q9967; 99156; 99157

== ENCOUNTER 2021-05-03 07:06 | Day surgery (SDC) | payer MEDICARE ==
[2021-04-28 11:50] LABS: BASOPHILS % (AUTO) 1.2 % (0.0-5.0); EOSINOPHILS % (AUTO) 4.2 % (0.0-8.0); HEMATOCRIT 44.6 % (36-48); LYMPHOCYTES % (AUTO) 19.9 % (21.0-51.0); MEAN CORPUSCULAR HEMOGLOBIN 28.9 pg (27.0-33.0); MEAN CORPUSCULAR HGB CONC 31.2 g/dL (32.0-36.0); MEAN CORPUSCULAR VOLUME 92.7 fL (79-99); MONOCYTES % (AUTO) 7.6 % (3.0-13.0); NEUTROPHILS % (AUTO) 66.8 % (40.0-77.0); PLATELET COUNT (AUTO) 217 K/uL (130-400); RED BLOOD CELL COUNT(AUTO) 4.81 MIL/uL (4.00-5.50); RED CELL DISTRIBUTION WIDTH 13.9 % (11.0-15.5); WHITE BLOOD COUNT (AUTO) 5.8 K/uL (4.8-10.8)
[2021-04-28 12:02] LABS: INR 1.11 (0.85-1.15)
[2021-04-28 12:03] LABS: CREATININE 1.3 mg/dL (0.5-1.5); PARTIAL THROMBOPLASTIN TIME 31.6 SEC (26.3-35.5); POTASSIUM 4.5 mmol/L (3.5-5.1)
[2021-04-30 10:25] VITALS: BP 176/79
[~2021-05-03] VITALS: Ht 170.2 cm; Wt 161.9 kg
[2021-05-03] VITALS (13 sets, daily range): BP systolic 137–170; BP diastolic 62–85
[~2021-05-03 07:06] MED LIST changes: +0.9% NACL 500ML IV.SOLN 500 ML IV SCH; +AMIO200T68 PO; +ISOPROTERENOL HCL 0.2 MG/ML AMP/VIAL/BAG IV SCH; +LEVO125T11 PO; -LEVO137T2 PO; +LORA10CA PO
[2021-05-03] MEDS ORDERED: 0.9%NACL 1000ML 1,000 ML IV ONE (09:07)
== END 2021-05-03 10:45 | disposition home or self-care (01) ==
LOC: DAH 07:06
PROVIDERS: ATTEND Internal Medicine Cardiovascular Disease
DX: I48.19 Other persistent atrial fibrillation (principal); Z20.822 Contact with and (suspected) exposure to COVID-19; I44.0 Atrioventricular block, first degree; I25.5 Ischemic cardiomyopathy; I11.0 Hypertensive heart disease with heart failure; I50.42 Chronic combined systolic (congestive) and diastolic (congestive) heart failure; I25.10 Atherosclerotic heart disease of native coronary artery without angina pectoris; I25.2 Old myocardial infarction; E66.01 Morbid (severe) obesity due to excess calories; E78.5 Hyperlipidemia, unspecified; G47.33 Obstructive sleep apnea (adult) (pediatric); E89.0 Postprocedural hypothyroidism; Z79.01 Long term (current) use of anticoagulants; Z88.6 Allergy status to analgesic agent; Z88.2 Allergy status to sulfonamides; Z95.5 Presence of coronary angioplasty implant and graft; Z90.710 Acquired absence of both cervix and uterus; Z98.890 Other specified postprocedural states; Z82.49 Family history of ischemic heart disease and other diseases of the circulatory system; Z68.43 Body mass index [BMI] 50.0-59.9, adult
CPT/HCPCS: 36415; 80048; 85025; 85610; 85730; 87635; 92960; 93005 ×2; A4215; A4216; A4221; A4222; A4223 ×3; A4606; A4663; C9803; J3490; J7030; 99156

== ENCOUNTER 2021-06-10 14:00 | Observation (INO) | payer MEDICARE ==
[~2021-06-10] VITALS: Ht 170.2 cm; Wt 159.7 kg
[2021-06-10 10:38] VITALS: BP 190/76
[~2021-06-10 14:00] MED LIST changes: -0.9% NACL 500ML IV.SOLN 500 ML IV SCH; -ISOPROTERENOL HCL 0.2 MG/ML AMP/VIAL/BAG IV SCH
[2021-06-10 15:46] LABS: BASOPHILS % (AUTO) 0.9 % (0.0-5.0); EOSINOPHILS % (AUTO) 2.7 % (0.0-8.0); HEMATOCRIT 42.3 % (36-48); LYMPHOCYTES % (AUTO) 18.8 % (21.0-51.0); MEAN CORPUSCULAR HEMOGLOBIN 28.9 pg (27.0-33.0); MEAN CORPUSCULAR HGB CONC 32.2 g/dL (32.0-36.0); MONOCYTES % (AUTO) 6.6 % (3.0-13.0); NEUTROPHILS % (AUTO) 70.7 % (40.0-77.0); PLATELET COUNT (AUTO) 222 K/uL (130-400); RED CELL DISTRIBUTION WIDTH 14.4 % (11.0-15.5); WHITE BLOOD COUNT (AUTO) 6.6 K/uL (4.8-10.8)
[2021-06-10 15:55] LABS: CREATININE 1.3 mg/dL (0.5-1.5); POTASSIUM 4.5 mmol/L (3.5-5.1)
[2021-06-10 15:58] LABS: INR 1.1 (0.85-1.15); PROTHROMBIN TIME 11.9 SEC (9.6-11.6)
[2021-06-11] MEDS ORDERED: ACET650T24 PO (13:03)
[2021-06-14] VITALS (13 sets, daily range): BP systolic 114–196; BP diastolic 63–88
[2021-06-14] MEDS: 0.9%NACL 1000ML 1,000 ML IV SCH ×2 (07:55→12:50)
[2021-06-14] MEDS ORDERED: CEFAZOLIN SODIUM 1 GM VIAL IVP ONE (08:00)
[2021-06-14] MEDS ORDERED: MIDAZOLAM HCL 1 MG/ML 2ML VIAL ONE ×4 (08:45→10:18)
[2021-06-14] MEDS ORDERED: MEPERIDINE-PF 25 MG/ML SYG ONE ×4 (08:45→10:18)
[2021-06-14] MEDS ORDERED: IODIXANOL 320 MG/ML 100 ML VIAL ONE (08:45)
[2021-06-14] MEDS ORDERED: BUPIVACAINE/PF 0.25% 30ML VIAL IJ ONE (08:45)
[2021-06-14] MEDS: AMIODARONE 200 MG TABLET PO SCH (11:27)
[2021-06-14] MEDS: LEVOTHYROXINE 125 MCG TABLET PO SCH (11:32)
[2021-06-14] MEDS: SACUBITRIL/VALSARTAN 1 EACH TABLET PO SCH ×2 (11:36→21:01)
[2021-06-14] MEDS: FLUOXETINE HCL 10 MG CAPSULE PO SCH (13:30)
[2021-06-14] MEDS: FAMOTIDINE 20MG TAB PO SCH ×2 (13:30→21:01)
[2021-06-14] MEDS: TRAMADOL HCL 50 MG TABLET PO PRN ×2 (13:30→18:37)
[2021-06-14] MEDS ORDERED: ATORVASTATIN 10 MG TABLET PO SCH (21:00)
[2021-06-15] MEDS: TRAMADOL HCL 50 MG TABLET PO PRN ×2 (00:25→10:30)
[2021-06-15 03:29] VITALS: BP 122/61
[2021-06-15] MEDS: LEVOTHYROXINE 125 MCG TABLET PO SCH (06:19)
[2021-06-15 06:23] LABS: BASOPHILS % (AUTO) 0.5 % (0.0-5.0); EOSINOPHILS % (AUTO) 2.3 % (0.0-8.0); HEMATOCRIT 39.6 % (36-48); LYMPHOCYTES % (AUTO) 16.1 % (21.0-51.0); MEAN CORPUSCULAR HEMOGLOBIN 28.8 pg (27.0-33.0); MEAN CORPUSCULAR HGB CONC 31.6 g/dL (32.0-36.0); MEAN CORPUSCULAR VOLUME 91.2 fL (79-99); PLATELET COUNT (AUTO) 162 K/uL (130-400); RED BLOOD CELL COUNT(AUTO) 4.34 MIL/uL (4.00-5.50); RED CELL DISTRIBUTION WIDTH 14.4 % (11.0-15.5); WHITE BLOOD COUNT (AUTO) 7.4 K/uL (4.8-10.8)
[2021-06-15 06:39] LABS: ALBUMIN 3.2 g/dL (3.5-5.0); CREATININE 1.1 mg/dL (0.5-1.5); PHOSPHORUS 3.3 mg/dL (2.5-4.9); POTASSIUM 3.7 mmol/L (3.5-5.1)
[2021-06-15 06:40] LABS: BILIRUBIN,TOTAL 0.9 mg/dL (0.2-1.0); MAGNESIUM 2.2 mg/dL (1.80-2.40); TOTAL PROTEIN, SERUM 6.6 g/dL (6.0-8.3)
[2021-06-15 07:00] VITALS: BP 125/66
[2021-06-15] MEDS ORDERED: TRAM50TA4 PO (08:57)
[2021-06-15] MEDS: FAMOTIDINE 20MG TAB PO SCH (10:20)
[2021-06-15] MEDS: AMIODARONE 200 MG TABLET PO SCH (10:20)
[2021-06-15] MEDS: FLUOXETINE HCL 10 MG CAPSULE PO SCH (10:20)
[2021-06-15 11:00] VITALS: BP 154/76
[2021-06-15] MEDS: SACUBITRIL/VALSARTAN 1 EACH TABLET PO SCH (11:53)
== END 2021-06-15 13:55 | disposition home or self-care (01) ==
LOC: DAHIP 06-14 07:00 → 2DH 06-14 11:45 → EDSTATUS 06-14 14:00
PROVIDERS: ADMIT Internal Medicine; ATTEND Internal Medicine
DX: I49.5 Sick sinus syndrome (principal); I48.0 Paroxysmal atrial fibrillation; I25.10 Atherosclerotic heart disease of native coronary artery without angina pectoris; I21.3 ST elevation (STEMI) myocardial infarction of unspecified site; I11.0 Hypertensive heart disease with heart failure; I50.42 Chronic combined systolic (congestive) and diastolic (congestive) heart failure; G47.33 Obstructive sleep apnea (adult) (pediatric); I25.5 Ischemic cardiomyopathy; E78.5 Hyperlipidemia, unspecified; E89.0 Postprocedural hypothyroidism; F41.9 Anxiety disorder, unspecified; I25.2 Old myocardial infarction; Z79.01 Long term (current) use of anticoagulants; Z79.82 Long term (current) use of aspirin; Z79.899 Other long term (current) drug therapy; Z85.850 Personal history of malignant neoplasm of thyroid; Z86.74 Personal history of sudden cardiac arrest; Z95.0 Presence of cardiac pacemaker
CPT/HCPCS: 33208; 33225; 36415 ×2; 71045; 80048; 80053; 82330; 83735; 83880; 84100; 85025 ×2; 85610; 85730; 93005; A4215; A4216; A4221; A4222; A4223 ×3; A4606; A4663; C1769; C1898 ×2; C1900; C2621; G0378 ×27; J0690; J2175 ×4; J2250 ×4; J3490; J7030; Q9967; 99156; 99157

== ENCOUNTER → 2021-09-15 | Outpatient (CLI) | payer MEDICARE ==
[~2021-09-15] MED LIST changes: +ACET650T24 PO; +ALBUTEROL 0.083% 2.5 MG/3 ML INH IH ONE; +TRAM50TA4 PO
== END | disposition home or self-care (01) ==
LOC: RESP 07:56
PROVIDERS: ATTEND Internal Medicine Cardiovascular Disease
DX: R06.02 Shortness of breath (principal); Z79.899 Other long term (current) drug therapy
CPT/HCPCS: 94060; 94727; 94729

== ENCOUNTER → 2022-02-23 | Outpatient (CLI) | payer MEDICARE ==
[~2022-02-23] MED LIST changes: +ACET-3204 PO; -ACET650T24 PO; -ALBUTEROL 0.083% 2.5 MG/3 ML INH IH ONE
== END | disposition home or self-care (01) ==
LOC: RESP 13:10
PROVIDERS: ATTEND Internal Medicine
DX: R06.00 Dyspnea, unspecified (principal)
CPT/HCPCS: 94060; 94727; 94729

== ENCOUNTER → 2023-10-16 | Outpatient (CLI) | payer MEDICARE | END | disposition home or self-care (01) | LOC: RAH 09:00 | PROVIDERS: ATTEND Internal Medicine | DX: K80.20 Calculus of gallbladder without cholecystitis without obstruction (principal); N28.1 Cyst of kidney, acquired; R10.9 Unspecified abdominal pain | CPT/HCPCS: 76700 ==